=== PATIENT | female | born 1960 | race Two or more races ===

== ENCOUNTER 2016-09-07 10:11 | Inpatient (IN) | payer BC ==
[~2016-09-07] VITALS: Ht 162.6 cm; Wt 65.5 kg
[~2016-09-07 10:11] MED LIST: ALB5IS NEB; LEVO500T3 PO; LISI10TA PO; PRED-188 PO
[2016-09-07] MEDS ORDERED: methylPREDNISolone SOD SUCC 125 MG/2 ML VL IV ONE (10:30)
[2016-09-07] MEDS ORDERED: SODIUM CHLORIDE 0.9% 1,000 ML IV ONE (10:30)
[2016-09-07 11:31] LABS: Basophils # (auto) 0 uL; Basophils % (auto) 0.3 % (0.0-2.0); Eosinophils # (auto) 0 uL; Eosinophils % (auto) 0.4 % (0.0-7.0); Hematocrit 44.4 % (36.0-46.0); Hemoglobin 14.7 g/dL (12.2-16.2); Lymphocytes # (auto) 1.4 uL; Lymphocytes % (auto) 22.5 % (10.0-50.0); Mean Corpuscular Hemoglobin 30.8 pg (28.0-32.0); Mean Corpuscular Hgb Conc. 33.2 g/dL (32.0-36.0); Mean Corpuscular Volume 92.9 fL (80.0-100.0); Mean Platelet Volume 8.5 fL (7.4-10.4); Monocytes # (auto) 0.6 uL; Monocytes % (auto) 9.3 % (0.0-12.0); Neutrophils # (auto) 4.3 uL; Neutrophils % (auto) 67.5 % (37.0-80.0); Platelet Count (auto) 265 10^3/uL (140-450); Red Cell Distribution Width 13.2 % (11.6-16.0); White Blood Cell 6.3 10^3/uL (4.4-10.8)
[2016-09-07 11:51] LABS: Albumin 3.3 g/dL (3.4-5.0); BUN/Creatinine Ratio 42.9; Bilirubin, Total 0.6 mg/dL (0.2-1.0); Calcium 8.9 mg/dL (8.5-10.1); Potassium 3.6 mmol/L (3.5-5.1); Total Protein 6.7 g/dL (6.4-8.2)
[2016-09-07] MEDS ORDERED: cefTRIAXone 1GM/50ML D5W 50 ML IV ONE (16:30)
[2016-09-07] MEDS ORDERED: ONDANSETRON HCL 4 MG/2 ML VIAL IV PRN (16:45)
[2016-09-07] MEDS ORDERED: HYDROcodone-ACET 5/325MG TAB PO PRN (16:45)
[2016-09-07] MEDS ORDERED: DOCUSATE SOD 100 MG CAP PO PRN (16:45)
[2016-09-07] MEDS ORDERED: ACETAMINOPHEN 325 MG TAB PO PRN (16:45)
[2016-09-07] MEDS ORDERED: NITROGLYCERIN 0.4 MG SL TAB SL PRN (16:45)
[2016-09-07] MEDS ORDERED: MORPHINE SULF INJ 2 MG/ML SYRINGE 1ML IV PRN ×2 (16:45)
[2016-09-07] MEDS: HCTZ 25 MG TAB PO SCH (17:55)
[2016-09-07] MEDS: MULTIPLE VITAMIN TAB PO SCH (17:56)
[2016-09-07] MEDS: LISINOPRIL 20 MG TAB PO SCH (17:56)
[2016-09-07] MEDS: BOOST PLUS 8 ounce PO SCH (18:00)
[2016-09-07] MEDS: ALBUTEROL SULF 2.5 MG/0.5ML(0.5%) NEB SOLN NEB SCH ×3 (18:15→23:40)
[2016-09-07] MEDS: IPRATROPIUM BROM 0.5 MG/2.5ML INH SOL NEB SCH ×2 (18:15→23:39)
[2016-09-07] MEDS: BUDESONIDE (INHALATION) 0.5 MG/2 ML NEB NEB SCH (18:15)
[2016-09-07] MEDS: methylPREDNISolone SOD SUCC 125 MG/2 ML VL IV SCH (18:29)
[2016-09-07 18:59] VITALS: BP 153/75
[2016-09-07 19:03] VITALS: BP_SYST 176; BP_SYST 188; BP_DIAS 95; BP_DIAS 98
[2016-09-07] MEDS: TEMAZEPAM 15 MG CAP PO PRN (21:19)
[2016-09-07] MEDS: SODIUM CHLOR 0.9% PF (SALINE LOCK) 10ML VIAL IV SCH (21:20)
[2016-09-07 21:26] VITALS: BP 128/78
[2016-09-07 21:28] VITALS: BP 130/79
[2016-09-08] MEDS: methylPREDNISolone SOD SUCC 125 MG/2 ML VL IV SCH ×4 (01:59→17:50)
[2016-09-08 04:48] VITALS: BP 140/77
[2016-09-08] MEDS: SODIUM CHLOR 0.9% PF (SALINE LOCK) 10ML VIAL IV SCH ×3 (05:45→22:03)
[2016-09-08 06:56] LABS: Basophils # (auto) 0 uL; Basophils % (auto) 0.2 % (0.0-2.0); Eosinophils # (auto) 0 uL; Hematocrit 40.1 % (36.0-46.0); Hemoglobin 13.1 g/dL (12.2-16.2); Lymphocytes # (auto) 0.9 uL; Lymphocytes % (auto) 17.6 % (10.0-50.0); Mean Corpuscular Hemoglobin 30.7 pg (28.0-32.0); Mean Corpuscular Hgb Conc. 32.8 g/dL (32.0-36.0); Mean Corpuscular Volume 93.6 fL (80.0-100.0); Mean Platelet Volume 8.3 fL (7.4-10.4); Monocytes # (auto) 0.4 uL; Monocytes % (auto) 7.9 % (0.0-12.0); Neutrophils # (auto) 3.8 uL; Neutrophils % (auto) 74.3 % (37.0-80.0); Platelet Count (auto) 247 10^3/uL (140-450); Red Cell Distribution Width 13.3 % (11.6-16.0); White Blood Cell 5.1 10^3/uL (4.4-10.8)
[2016-09-08 07:21] LABS: BUN/Creatinine Ratio 50.9; Calcium 8.5 mg/dL (8.5-10.1); Potassium 3.7 mmol/L (3.5-5.1)
[2016-09-08 07:24] LABS: Bilirubin, Total 0.4 mg/dL (0.2-1.0); Total Protein 6.1 g/dL (6.4-8.2)
[2016-09-08] MEDS: BUDESONIDE (INHALATION) 0.5 MG/2 ML NEB NEB SCH ×2 (07:38→22:00)
[2016-09-08] MEDS: IPRATROPIUM BROM 0.5 MG/2.5ML INH SOL NEB SCH ×4 (07:39→22:41)
[2016-09-08] MEDS: ALBUTEROL SULF 2.5 MG/0.5ML(0.5%) NEB SOLN NEB SCH ×4 (07:39→22:41)
[2016-09-08] MEDS: BOOST PLUS 8 ounce PO SCH ×3 (08:30→17:50)
[2016-09-08] MEDS: cefTRIAXone 1GM/50ML D5W 50 ML IV SCH (08:53)
[2016-09-08 09:00] VITALS: BP 139/79
[2016-09-08] MEDS: HCTZ 25 MG TAB PO SCH (10:20)
[2016-09-08] MEDS: LISINOPRIL 20 MG TAB PO SCH (10:21)
[2016-09-08] MEDS: MULTIPLE VITAMIN TAB PO SCH (10:21)
[2016-09-08 17:00] VITALS: BP 132/72
[2016-09-08 22:00] VITALS: BP 135/79
[2016-09-09] MEDS: methylPREDNISolone SOD SUCC 40 MG/ML VL IV SCH ×4 (00:01→17:30)
[2016-09-09 04:44] VITALS: BP 133/80
[2016-09-09] MEDS: SODIUM CHLOR 0.9% PF (SALINE LOCK) 10ML VIAL IV SCH ×3 (05:33→21:01)
[2016-09-09] MEDS: ALBUTEROL SULF 2.5 MG/0.5ML(0.5%) NEB SOLN NEB SCH ×4 (06:05→19:01)
[2016-09-09] MEDS: IPRATROPIUM BROM 0.5 MG/2.5ML INH SOL NEB SCH ×4 (06:05→19:01)
[2016-09-09] MEDS: BOOST PLUS 8 ounce PO SCH ×3 (08:00→19:00)
[2016-09-09 08:13] VITALS: BP 149/95
[2016-09-09] MEDS: cefTRIAXone 1GM/50ML D5W 50 ML IV SCH (08:23)
[2016-09-09] MEDS: MULTIPLE VITAMIN TAB PO SCH (09:53)
[2016-09-09] MEDS: LISINOPRIL 20 MG TAB PO SCH (09:54)
[2016-09-09] MEDS: HCTZ 25 MG TAB PO SCH (09:55)
[2016-09-09] MEDS: BUDESONIDE (INHALATION) 0.5 MG/2 ML NEB NEB SCH ×2 (10:06→19:01)
[2016-09-09 12:43] VITALS: BP 112/70
[2016-09-09 16:49] VITALS: BP 126/74
[2016-09-09] MEDS: TEMAZEPAM 15 MG CAP PO PRN (21:00)
[2016-09-09 21:30] VITALS: BP 122/59
[2016-09-10] MEDS: methylPREDNISolone SOD SUCC 40 MG/ML VL IV SCH ×4 (00:26→17:36)
[2016-09-10 05:00] VITALS: BP 108/58
[2016-09-10] MEDS: SODIUM CHLOR 0.9% PF (SALINE LOCK) 10ML VIAL IV SCH ×3 (05:16→21:16)
[2016-09-10 05:49] LABS: BUN/Creatinine Ratio 46.9; Calcium 9.1 mg/dL (8.5-10.1); Magnesium 2.4 mg/dL (1.6-2.6); Potassium 3.7 mmol/L (3.5-5.1)
[2016-09-10 05:55] LABS: Basophils # (auto) 0 uL; Basophils % (auto) 0.2 % (0.0-2.0); Eosinophils # (auto) 0 uL; Hematocrit 41.6 % (36.0-46.0); Hemoglobin 13.6 g/dL (12.2-16.2); Mean Corpuscular Hemoglobin 30.6 pg (28.0-32.0); Mean Corpuscular Hgb Conc. 32.6 g/dL (32.0-36.0); Mean Corpuscular Volume 93.8 fL (80.0-100.0); Mean Platelet Volume 8.4 fL (7.4-10.4); Monocytes # (auto) 0.6 uL; Monocytes % (auto) 9.8 % (0.0-12.0); Neutrophils # (auto) 4.8 uL; Platelet Count (auto) 243 10^3/uL (140-450); Red Cell Distribution Width 12.4 % (11.6-16.0); White Blood Cell 6.4 10^3/uL (4.4-10.8)
[2016-09-10] MEDS: ALBUTEROL SULF 2.5 MG/0.5ML(0.5%) NEB SOLN NEB SCH ×4 (06:17→18:30)
[2016-09-10] MEDS: IPRATROPIUM BROM 0.5 MG/2.5ML INH SOL NEB SCH ×4 (06:17→18:30)
[2016-09-10] MEDS: BOOST PLUS 8 ounce PO SCH ×3 (08:00→17:29)
[2016-09-10 08:30] VITALS: BP 128/72
[2016-09-10] MEDS ORDERED: ADENOSINE 58 MG in GIVE UN-DILUTED 0 ML IV ONE (08:30)
[2016-09-10] MEDS: cefTRIAXone 1GM/50ML D5W 50 ML IV SCH (09:00)
[2016-09-10] MEDS: BUDESONIDE (INHALATION) 0.5 MG/2 ML NEB NEB SCH ×2 (10:18→18:33)
[2016-09-10] MEDS: MULTIPLE VITAMIN TAB PO SCH (10:29)
[2016-09-10] MEDS: HCTZ 25 MG TAB PO SCH (10:29)
[2016-09-10] MEDS: LISINOPRIL 20 MG TAB PO SCH (10:30)
[2016-09-10 13:00] VITALS: BP 102/57
[2016-09-10] MEDS: LEVOFLOXACIN 500MG 100 ML IV SCH (17:30)
[2016-09-10] MEDS: TEMAZEPAM 15 MG CAP PO PRN (21:23)
[2016-09-10 22:00] VITALS: BP 127/75
[2016-09-11] MEDS: methylPREDNISolone SOD SUCC 40 MG/ML VL IV SCH ×4 (00:52→18:47)
[2016-09-11 05:40] VITALS: BP 114/67
[2016-09-11] MEDS: ALBUTEROL SULF 2.5 MG/0.5ML(0.5%) NEB SOLN NEB SCH ×4 (05:58→22:10)
[2016-09-11] MEDS: IPRATROPIUM BROM 0.5 MG/2.5ML INH SOL NEB SCH ×4 (05:58→22:10)
[2016-09-11] MEDS: SODIUM CHLOR 0.9% PF (SALINE LOCK) 10ML VIAL IV SCH ×3 (06:35→22:13)
[2016-09-11 07:21] LABS: Basophils # (auto) 0 uL; Eosinophils # (auto) 0 uL; Hematocrit 41.3 % (36.0-46.0); Hemoglobin 13.7 g/dL (12.2-16.2); Lymphocytes # (auto) 0.6 uL; Lymphocytes % (auto) 11.8 % (10.0-50.0); Mean Corpuscular Hemoglobin 30.6 pg (28.0-32.0); Mean Corpuscular Hgb Conc. 33.1 g/dL (32.0-36.0); Mean Corpuscular Volume 92.5 fL (80.0-100.0); Mean Platelet Volume 8.5 fL (7.4-10.4); Monocytes # (auto) 0.2 uL; Monocytes % (auto) 4.7 % (0.0-12.0); Neutrophils # (auto) 4.1 uL; Neutrophils % (auto) 83.5 % (37.0-80.0); Platelet Count (auto) 266 10^3/uL (140-450); White Blood Cell 4.9 10^3/uL (4.4-10.8)
[2016-09-11] MEDS: BOOST PLUS 8 ounce PO SCH ×3 (08:00→18:00)
[2016-09-11 08:05] LABS: BUN/Creatinine Ratio 56.9; Calcium 9.2 mg/dL (8.5-10.1); Magnesium 2.4 mg/dL (1.6-2.6); Phosphorus 3.8 mg/dL (2.6-4.90); Potassium 3.8 mmol/L (3.5-5.1)
[2016-09-11 09:00] VITALS: BP 130/82
[2016-09-11] MEDS: BUDESONIDE (INHALATION) 0.5 MG/2 ML NEB NEB SCH ×2 (09:41→22:10)
[2016-09-11] MEDS: LISINOPRIL 20 MG TAB PO SCH (10:07)
[2016-09-11] MEDS: HCTZ 25 MG TAB PO SCH (10:07)
[2016-09-11] MEDS: MULTIPLE VITAMIN TAB PO SCH (10:08)
[2016-09-11] MEDS: LEVOFLOXACIN 500MG 100 ML IV SCH (10:08)
[2016-09-11 13:00] VITALS: BP 135/79
[2016-09-11 17:00] VITALS: BP 138/85
[2016-09-11 22:00] VITALS: BP 154/91
[2016-09-11] MEDS: TEMAZEPAM 15 MG CAP PO PRN (22:10)
[2016-09-12] MEDS: methylPREDNISolone SOD SUCC 40 MG/ML VL IV SCH ×5 (00:03→23:40)
[2016-09-12] MEDS: SODIUM CHLOR 0.9% PF (SALINE LOCK) 10ML VIAL IV SCH ×3 (05:49→22:18)
[2016-09-12 06:00] VITALS: BP 115/72
[2016-09-12 06:48] LABS: Basophils # (auto) 0 uL; Basophils % (auto) 0.1 % (0.0-2.0); Eosinophils # (auto) 0 uL; Hematocrit 42.2 % (36.0-46.0); Hemoglobin 13.8 g/dL (12.2-16.2); Lymphocytes # (auto) 0.7 uL; Lymphocytes % (auto) 11.4 % (10.0-50.0); Mean Corpuscular Hemoglobin 30.5 pg (28.0-32.0); Mean Corpuscular Hgb Conc. 32.8 g/dL (32.0-36.0); Mean Corpuscular Volume 93.2 fL (80.0-100.0); Mean Platelet Volume 8.3 fL (7.4-10.4); Monocytes # (auto) 0.3 uL; Monocytes % (auto) 5.2 % (0.0-12.0); Neutrophils # (auto) 5.3 uL; Neutrophils % (auto) 83.3 % (37.0-80.0); Platelet Count (auto) 291 10^3/uL (140-450); White Blood Cell 6.3 10^3/uL (4.4-10.8)
[2016-09-12 07:11] LABS: Magnesium 2.4 mg/dL (1.6-2.6); Potassium 3.9 mmol/L (3.5-5.1)
[2016-09-12 07:16] LABS: BUN/Creatinine Ratio 45.5
[2016-09-12] MEDS: IPRATROPIUM BROM 0.5 MG/2.5ML INH SOL NEB SCH ×4 (07:41→20:04)
[2016-09-12] MEDS: ALBUTEROL SULF 2.5 MG/0.5ML(0.5%) NEB SOLN NEB SCH ×4 (07:42→20:04)
[2016-09-12] MEDS: BUDESONIDE (INHALATION) 0.5 MG/2 ML NEB NEB SCH ×2 (07:42→20:04)
[2016-09-12] MEDS: BOOST PLUS 8 ounce PO SCH ×3 (08:00→18:27)
[2016-09-12 09:00] VITALS: BP 127/81
[2016-09-12] MEDS: LEVOFLOXACIN 500MG 100 ML IV SCH (10:57)
[2016-09-12] MEDS: MULTIPLE VITAMIN TAB PO SCH (10:57)
[2016-09-12] MEDS: HCTZ 25 MG TAB PO SCH (10:58)
[2016-09-12] MEDS: LISINOPRIL 20 MG TAB PO SCH (10:59)
[2016-09-12 13:00] VITALS: BP 127/79
[2016-09-12 17:00] VITALS: BP 92/72
[2016-09-12] MEDS: ALPRAZolam 0.25 MG TAB PO PRN (18:40)
[2016-09-12 22:25] VITALS: BP 115/76
[2016-09-13 05:19] VITALS: BP 125/80
[2016-09-13] MEDS: SODIUM CHLOR 0.9% PF (SALINE LOCK) 10ML VIAL IV SCH ×3 (05:29→22:38)
[2016-09-13] MEDS: methylPREDNISolone SOD SUCC 40 MG/ML VL IV SCH ×3 (05:29→17:27)
[2016-09-13 07:05] LABS: Basophils # (auto) 0 uL; Eosinophils # (auto) 0 uL; Hemoglobin 14.4 g/dL (12.2-16.2); Lymphocytes # (auto) 0.6 uL; Lymphocytes % (auto) 7.2 % (10.0-50.0); Mean Corpuscular Hemoglobin 30.4 pg (28.0-32.0); Mean Corpuscular Hgb Conc. 32.7 g/dL (32.0-36.0); Mean Platelet Volume 8.6 fL (7.4-10.4); Monocytes # (auto) 0.3 uL; Monocytes % (auto) 4.1 % (0.0-12.0); Neutrophils # (auto) 7.3 uL; Neutrophils % (auto) 88.7 % (37.0-80.0); Platelet Count (auto) 294 10^3/uL (140-450); Red Cell Distribution Width 13.3 % (11.6-16.0); White Blood Cell 8.3 10^3/uL (4.4-10.8)
[2016-09-13 07:23] LABS: BUN/Creatinine Ratio 48.4; Calcium 9.4 mg/dL (8.5-10.1); Magnesium 2.3 mg/dL (1.6-2.6); Phosphorus 3.5 mg/dL (2.6-4.90); Potassium 3.8 mmol/L (3.5-5.1)
[2016-09-13] MEDS: IPRATROPIUM BROM 0.5 MG/2.5ML INH SOL NEB SCH ×5 (08:00→22:06)
[2016-09-13] MEDS: BOOST PLUS 8 ounce PO SCH ×3 (08:00→18:23)
[2016-09-13] MEDS: ALBUTEROL SULF 2.5 MG/0.5ML(0.5%) NEB SOLN NEB SCH ×5 (08:00→22:06)
[2016-09-13 09:00] VITALS: BP 116/74
[2016-09-13] MEDS: LEVOFLOXACIN 500MG 100 ML IV SCH (09:13)
[2016-09-13] MEDS: LISINOPRIL 20 MG TAB PO SCH (09:14)
[2016-09-13] MEDS: MULTIPLE VITAMIN TAB PO SCH (09:14)
[2016-09-13] MEDS: ALPRAZolam 0.25 MG TAB PO PRN ×2 (09:14→17:31)
[2016-09-13] MEDS: HCTZ 25 MG TAB PO SCH (09:15)
[2016-09-13 13:00] VITALS: BP 109/56
[2016-09-13 17:00] VITALS: BP 108/64
[2016-09-13 22:00] VITALS: BP 113/68
[2016-09-13] MEDS: BUDESONIDE (INHALATION) 0.5 MG/2 ML NEB NEB SCH (22:07)
[2016-09-14] MEDS: methylPREDNISolone SOD SUCC 40 MG/ML VL IV SCH ×3 (00:22→12:32)
[2016-09-14 05:00] VITALS: BP 119/73
[2016-09-14] MEDS: SODIUM CHLOR 0.9% PF (SALINE LOCK) 10ML VIAL IV SCH ×2 (05:54→14:04)
[2016-09-14] MEDS: IPRATROPIUM BROM 0.5 MG/2.5ML INH SOL NEB SCH ×3 (06:29→13:31)
[2016-09-14] MEDS: ALBUTEROL SULF 2.5 MG/0.5ML(0.5%) NEB SOLN NEB SCH ×3 (06:29→13:31)
[2016-09-14] MEDS: BOOST PLUS 8 ounce PO SCH ×2 (08:00→12:00)
[2016-09-14 09:00] VITALS: BP 113/53
[2016-09-14] MEDS: BUDESONIDE (INHALATION) 0.5 MG/2 ML NEB NEB SCH (09:46)
[2016-09-14] MEDS: LEVOFLOXACIN 500MG 100 ML IV SCH (10:19)
[2016-09-14] MEDS: MULTIPLE VITAMIN TAB PO SCH (10:19)
[2016-09-14] MEDS: HCTZ 25 MG TAB PO SCH (10:19)
[2016-09-14] MEDS: ALPRAZolam 0.25 MG TAB PO PRN (10:19)
[2016-09-14] MEDS: LISINOPRIL 20 MG TAB PO SCH (10:19)
[2016-09-14 13:00] VITALS: BP 108/69
[2016-09-14 14:11] VITALS: BP 108/69
== END 2016-09-14 15:34 | disposition home or self-care (01) | DRG 190 ==
LOC: EDBD 10:11 → ER 10:15 → TELE 10:16 → TELE-EAST 18:40
PROVIDERS: ADMIT Internal Medicine; ATTEND Internal Medicine
PROC: 5A09357 Assistance with Respiratory Ventilation, Less than 24 Consecutive Hours, Continuous Positive Airway Pressure (ICD-10-PCS; principal; 2016-09-07)
DX: J44.0 Chronic obstructive pulmonary disease with (acute) lower respiratory infection (principal); J96.21 Acute and chronic respiratory failure with hypoxia; J96.22 Acute and chronic respiratory failure with hypercapnia; J45.901 Unspecified asthma with (acute) exacerbation; E44.0 Moderate protein-calorie malnutrition; J44.1 Chronic obstructive pulmonary disease with (acute) exacerbation; F17.210 Nicotine dependence, cigarettes, uncomplicated; R73.9 Hyperglycemia, unspecified; F41.9 Anxiety disorder, unspecified; I12.9 Hypertensive chronic kidney disease with stage 1 through stage 4 chronic kidney disease, or unspecified chronic kidney disease; J20.9 Acute bronchitis, unspecified; J84.10 Pulmonary fibrosis, unspecified; N18.9 Chronic kidney disease, unspecified; Z99.81 Dependence on supplemental oxygen; Z90.49 Acquired absence of other specified parts of digestive tract; Z98.890 Other specified postprocedural states; Z98.51 Tubal ligation status; Z82.49 Family history of ischemic heart disease and other diseases of the circulatory system; Z68.24 Body mass index [BMI] 24.0-24.9, adult
CPT/HCPCS: 36415; 36600; 71010; 80048; 80053; 82805; 83735; 84100; 84484; 85025; 93005; 93306; 94640; 94660; 96374; 96375; 97001; 97116; 97530; J0153; J0696; J1956

== ENCOUNTER 2017-09-29 01:47 | Inpatient (IN) | payer BC ==
[~2017-09-29] VITALS: Ht 160 cm; Wt 70.7 kg
[~2017-09-29 01:47] MED LIST changes: +LEVO500T21 PO; -LEVO500T3 PO
[2017-09-29 02:07] LABS: Basophils # (auto) 0.1 uL; Basophils % (auto) 0.6 % (0.0-2.0); Eosinophils # (auto) 0 uL; Hematocrit 44.2 % (36.0-46.0); Hemoglobin 14.7 g/dL (12.2-16.2); Lymphocytes # (auto) 2.8 uL; Mean Corpuscular Hemoglobin 31.9 pg (28.0-32.0); Mean Corpuscular Hgb Conc. 33.3 g/dL (32.0-36.0); Mean Corpuscular Volume 95.8 fL (80.0-100.0); Monocytes % (auto) 9.9 % (0.0-12.0); Neutrophils # (auto) 6.3 uL; Neutrophils % (auto) 62.5 % (37.0-80.0); Nucleated Red Blood Cells % 0.1 %; Platelet Count (auto) 316 10^3/uL (140-450); Red Blood Cells 4.62 10^6/uL (4.0-5.20); White Blood Cell 10.2 10^3/uL (4.4-10.8)
[2017-09-29] MEDS ORDERED: FUROSEMIDE 20 MG/2 ML VIAL ONE (02:14)
[2017-09-29] MEDS ORDERED: methylPREDNISolone SOD SUCC 125 MG/2 ML VL ONE (02:14)
[2017-09-29] MEDS ORDERED: MORPHINE SULFATE 10 MG/ML INJ 1ML SDV IV ONE (02:15)
[2017-09-29] MEDS ORDERED: IPRATROPIUM BROM 0.5 MG/2.5ML INH SOL NEB ONE (02:15)
[2017-09-29] MEDS ORDERED: IPRATROPIUM BROM 0.5 MG/2.5ML INH SOL ONE (02:15)
[2017-09-29] MEDS ORDERED: ONDANSETRON HCL 4 MG/2 ML VIAL IV ONE (02:15)
[2017-09-29] MEDS ORDERED: FUROSEMIDE 20 MG/2 ML VIAL IV ONE (02:15)
[2017-09-29] MEDS ORDERED: methylPREDNISolone SOD SUCC 125 MG/2 ML VL IV ONE (02:15)
[2017-09-29] MEDS ORDERED: ALBUTEROL SULF 2.5 MG/0.5ML(0.5%) NEB SOLN NEB ONE (02:15)
[2017-09-29 02:24] LABS: Albumin 3.4 g/dL (3.4-5.0); BUN/Creatinine Ratio 22.2; Magnesium 2.3 mg/dL (1.6-2.6); Potassium 4.4 mmol/L (3.5-5.1)
[2017-09-29 02:44] LABS: Bilirubin, Total 0.5 mg/dL (0.2-1.0)
[2017-09-29] MEDS ORDERED: UMEC1AER IN (03:10)
[2017-09-29] MEDS ORDERED: ALPR0.254 PO (03:10)
[2017-09-29 04:41] LABS: Urine Bacteria NONE SEEN /hpf (None Seen); Urine Blood Negative /uL (Negative); Urine Hyaline Cast MOD /lpf (0 - 2); Urine Mucus FEW (None Seen); Urine WBC 2 /hpf (0 - 5)
[2017-09-29] MEDS ORDERED: NITROGLYCERIN 0.4 MG SL TAB SL PRN (05:30)
[2017-09-29] MEDS ORDERED: ONDANSETRON HCL 4 MG/2 ML VIAL IV PRN (05:30)
[2017-09-29] MEDS ORDERED: MORPHINE SULFATE 10 MG/ML INJ 1ML SDV IV PRN (05:30)
[2017-09-29] MEDS ORDERED: ALPRAZolam 0.25 MG TAB PO PRN (05:30)
[2017-09-29 05:54] LABS: Cholesterol 225 mg/dL (< 200); Creatine Kinase IFCC 107 U/L (26-192); HDL Cholesterol 78 mg/dL (40-59); LDL Cholesterol 129 mg/dL (< 100); Triglycerides 156 mg/dL (< 150)
[2017-09-29] MEDS: IPRATROPIUM BROM 0.5 MG/2.5ML INH SOL NEB SCH ×4 (06:16→22:13)
[2017-09-29] MEDS: ALBUTEROL SULF 2.5 MG/0.5ML(0.5%) NEB SOLN NEB SCH ×4 (06:16→22:13)
[2017-09-29 08:56] VITALS: BP 102/77
[2017-09-29 09:12] VITALS: BP 120/88
[2017-09-29] MEDS ORDERED: methylPREDNISolone SOD SUCC 40 MG/ML VL IV SCH (10:00)
[2017-09-29] MEDS: FUROSEMIDE 40 MG/4 ML VIAL IV SCH (10:18)
[2017-09-29] MEDS: ASPirin-EC 81 mg tab PO SCH (10:18)
[2017-09-29] MEDS ORDERED: IPRATROPIUM BROM 0.5 MG/2.5ML INH SOL NEB PRN (16:00)
[2017-09-29] MEDS ORDERED: ALBUTEROL SULF 2.5 MG/0.5ML(0.5%) NEB SOLN NEB PRN (16:00)
[2017-09-29] MEDS: methylPREDNISolone SOD SUCC 40 MG/ML VL IV SCH ×2 (16:34→22:41)
[2017-09-29] MEDS: ACETAMINOPHEN 500 MG TAB PO PRN (16:35)
[2017-09-29 17:16] VITALS: BP 133/74
[2017-09-29] MEDS: BUDESONIDE (INHALATION) 0.5 MG/2 ML NEB NEB SCH (18:30)
[2017-09-29] MEDS: LORazepam 0.5 MG TAB PO PRN (21:32)
[2017-09-29] MEDS: ATORVASTATIN 20 MG TAB PO SCH (21:38)
[2017-09-29 21:47] VITALS: BP 122/70
[2017-09-30] VITALS (7 sets, daily range): BP systolic 129–151; BP diastolic 83–113
[2017-09-30] MEDS: TEMAZEPAM 15 MG CAP PO PRN ×2 (01:10→22:39)
[2017-09-30] MEDS: methylPREDNISolone SOD SUCC 40 MG/ML VL IV SCH ×4 (04:32→22:34)
[2017-09-30] MEDS: LORazepam 0.5 MG TAB PO PRN ×2 (05:30→21:17)
[2017-09-30] MEDS: IPRATROPIUM BROM 0.5 MG/2.5ML INH SOL NEB SCH ×5 (05:32→21:51)
[2017-09-30] MEDS: ALBUTEROL SULF 2.5 MG/0.5ML(0.5%) NEB SOLN NEB SCH ×5 (05:32→21:52)
[2017-09-30] MEDS ORDERED: ADENOSINE 65 MG in GIVE UN-DILUTED 0 ML IV ONE (08:30)
[2017-09-30] MEDS: BUDESONIDE (INHALATION) 0.5 MG/2 ML NEB NEB SCH ×2 (09:38→21:30)
[2017-09-30] MEDS: ASPirin-EC 81 mg tab PO SCH (10:48)
[2017-09-30] MEDS: FUROSEMIDE 40 MG/4 ML VIAL IV SCH (11:21)
[2017-09-30] MEDS: ATORVASTATIN 20 MG TAB PO SCH (22:34)
[2017-10-01 05:00] VITALS: BP 152/97
[2017-10-01] MEDS: methylPREDNISolone SOD SUCC 40 MG/ML VL IV SCH ×4 (05:30→23:09)
[2017-10-01] MEDS: LORazepam 0.5 MG TAB PO PRN ×3 (06:39→23:26)
[2017-10-01] MEDS: IPRATROPIUM BROM 0.5 MG/2.5ML INH SOL NEB SCH ×5 (06:48→22:57)
[2017-10-01] MEDS: BUDESONIDE (INHALATION) 0.5 MG/2 ML NEB NEB SCH ×2 (06:48→19:47)
[2017-10-01] MEDS: ALBUTEROL SULF 2.5 MG/0.5ML(0.5%) NEB SOLN NEB SCH ×5 (06:48→22:57)
[2017-10-01 09:00] VITALS: BP 146/99
[2017-10-01] MEDS: FUROSEMIDE 40 MG/4 ML VIAL IV SCH (11:03)
[2017-10-01] MEDS: ASPirin-EC 81 mg tab PO SCH (11:04)
[2017-10-01 13:14] VITALS: BP 153/97
[2017-10-01 17:00] VITALS: BP 154/94
[2017-10-01 20:00] VITALS: BP 110/62
[2017-10-01 22:00] VITALS: BP 140/97
[2017-10-01] MEDS: ATORVASTATIN 20 MG TAB PO SCH (23:08)
[2017-10-02] MEDS: ALBUTEROL SULF 2.5 MG/0.5ML(0.5%) NEB SOLN NEB SCH ×5 (01:30→19:16)
[2017-10-02] MEDS: IPRATROPIUM BROM 0.5 MG/2.5ML INH SOL NEB SCH ×6 (01:30→22:14)
[2017-10-02 05:00] VITALS: BP 137/85
[2017-10-02] MEDS: methylPREDNISolone SOD SUCC 40 MG/ML VL IV SCH ×4 (05:24→23:25)
[2017-10-02] MEDS: BUDESONIDE (INHALATION) 0.5 MG/2 ML NEB NEB SCH ×3 (07:18→22:14)
[2017-10-02 09:00] VITALS: BP 147/102
[2017-10-02] MEDS: ASPirin-EC 81 mg tab PO SCH (11:08)
[2017-10-02] MEDS: FUROSEMIDE 40 MG/4 ML VIAL IV SCH (11:08)
[2017-10-02 13:00] VITALS: BP 133/83
[2017-10-02] MEDS: LORazepam 0.5 MG TAB PO PRN (14:13)
[2017-10-02 15:08] VITALS: BP 133/83
[2017-10-02 17:00] VITALS: BP 118/70
[2017-10-02] MEDS: ATORVASTATIN 20 MG TAB PO SCH (21:39)
[2017-10-02 22:00] VITALS: BP 127/78
[2017-10-03] MEDS: IPRATROPIUM BROM 0.5 MG/2.5ML INH SOL NEB SCH ×4 (02:09→18:15)
[2017-10-03] MEDS: LORazepam 0.5 MG TAB PO PRN ×2 (02:31→10:39)
[2017-10-03 04:51] VITALS: BP 133/70
[2017-10-03] MEDS: methylPREDNISolone SOD SUCC 40 MG/ML VL IV SCH ×4 (05:23→23:08)
[2017-10-03] MEDS: ALBUTEROL SULF 2.5 MG/0.5ML(0.5%) NEB SOLN NEB SCH ×4 (06:07→18:15)
[2017-10-03 09:00] VITALS: BP 140/83
[2017-10-03] MEDS: FUROSEMIDE 40 MG/4 ML VIAL IV SCH (09:19)
[2017-10-03] MEDS: ASPirin-EC 81 mg tab PO SCH (09:20)
[2017-10-03] MEDS: BUDESONIDE (INHALATION) 0.5 MG/2 ML NEB NEB SCH ×3 (10:22→22:00)
[2017-10-03] MEDS ORDERED: DOXYCYCLINE 100 MG TAB/CAP PO ONE (10:30)
[2017-10-03 11:21] LABS: BUN/Creatinine Ratio 61.7; Calcium 9.4 mg/dL (8.5-10.1); Potassium 4.3 mmol/L (3.5-5.1)
[2017-10-03 13:00] VITALS: BP 130/78
[2017-10-03 16:52] VITALS: BP 121/83
[2017-10-03] MEDS: ATORVASTATIN 20 MG TAB PO SCH ×2 (21:17→22:33)
[2017-10-03] MEDS: DOXYCYCLINE 100 MG TAB/CAP PO SCH (21:17)
[2017-10-03 22:20] VITALS: BP 128/84
[2017-10-04] MEDS: LORazepam 0.5 MG TAB PO PRN (02:31)
[2017-10-04] MEDS: IPRATROPIUM BROM 0.5 MG/2.5ML INH SOL NEB SCH ×6 (02:42→21:53)
[2017-10-04] MEDS: ALBUTEROL SULF 2.5 MG/0.5ML(0.5%) NEB SOLN NEB SCH ×6 (02:42→21:53)
[2017-10-04 05:00] VITALS: BP 157/77
[2017-10-04] MEDS: methylPREDNISolone SOD SUCC 40 MG/ML VL IV SCH ×4 (05:29→23:25)
[2017-10-04] MEDS: BUDESONIDE (INHALATION) 0.5 MG/2 ML NEB NEB SCH ×3 (06:30→18:19)
[2017-10-04 08:00] VITALS: BP 140/116
[2017-10-04 09:00] VITALS: BP 140/116
[2017-10-04] MEDS: FUROSEMIDE 40 MG/4 ML VIAL IV SCH (09:49)
[2017-10-04] MEDS: DOXYCYCLINE 100 MG TAB/CAP PO SCH ×2 (09:49→22:33)
[2017-10-04] MEDS: ASPirin-EC 81 mg tab PO SCH (09:49)
[2017-10-04] MEDS ORDERED: LORazepam 2MG/ML-1ML VIAL ONE (10:44)
[2017-10-04] MEDS ORDERED: LORazepam 2MG/ML-1ML VIAL IV PRN (10:45)
[2017-10-04 13:00] VITALS: BP 137/92
[2017-10-04] MEDS: LORazepam 2MG/ML-1ML VIAL IV PRN ×2 (16:04→22:25)
[2017-10-04 17:39] VITALS: BP 126/95
[2017-10-04 22:00] VITALS: BP 151/88
[2017-10-04] MEDS: TEMAZEPAM 15 MG CAP PO PRN (22:33)
[2017-10-05] MEDS: ALBUTEROL SULF 2.5 MG/0.5ML(0.5%) NEB SOLN NEB SCH ×5 (01:55→18:20)
[2017-10-05] MEDS: IPRATROPIUM BROM 0.5 MG/2.5ML INH SOL NEB SCH ×5 (01:55→18:20)
[2017-10-05 04:45] VITALS: BP 125/82
[2017-10-05] MEDS: methylPREDNISolone SOD SUCC 40 MG/ML VL IV SCH ×4 (05:20→23:10)
[2017-10-05] MEDS: BUDESONIDE (INHALATION) 0.5 MG/2 ML NEB NEB SCH ×2 (06:29→22:00)
[2017-10-05] MEDS: LORazepam 2MG/ML-1ML VIAL IV PRN ×4 (07:20→21:42)
[2017-10-05 09:10] VITALS: BP 138/91
[2017-10-05] MEDS: ASPirin-EC 81 mg tab PO SCH (10:44)
[2017-10-05] MEDS: FUROSEMIDE 40 MG/4 ML VIAL IV SCH (10:44)
[2017-10-05] MEDS: DOXYCYCLINE 100 MG TAB/CAP PO SCH ×2 (10:44→21:27)
[2017-10-05 13:00] VITALS: BP 152/84
[2017-10-05 16:31] VITALS: BP 152/84
[2017-10-05 17:49] VITALS: BP 131/78
[2017-10-05] MEDS: ATORVASTATIN 20 MG TAB PO SCH (21:27)
[2017-10-05 22:00] VITALS: BP 113/88
[2017-10-06] MEDS: LORazepam 2MG/ML-1ML VIAL IV PRN ×5 (03:20→22:12)
[2017-10-06 05:00] VITALS: BP 118/73
[2017-10-06] MEDS: methylPREDNISolone SOD SUCC 40 MG/ML VL IV SCH (05:30)
[2017-10-06] MEDS: BUDESONIDE (INHALATION) 0.5 MG/2 ML NEB NEB SCH ×2 (06:34→19:06)
[2017-10-06] MEDS: IPRATROPIUM BROM 0.5 MG/2.5ML INH SOL NEB SCH ×5 (06:34→22:24)
[2017-10-06] MEDS: ALBUTEROL SULF 2.5 MG/0.5ML(0.5%) NEB SOLN NEB SCH ×5 (06:34→22:23)
[2017-10-06 06:35] LABS: Basophils # (auto) 0 uL; Basophils % (auto) 0.1 % (0.0-2.0); Eosinophils # (auto) 0 uL; Hematocrit 49.2 % (36.0-46.0); Hemoglobin 17.1 g/dL (12.2-16.2); Lymphocytes # (auto) 1.1 uL; Lymphocytes % (auto) 8.5 % (10.0-50.0); Mean Corpuscular Hemoglobin 32.4 pg (28.0-32.0); Mean Corpuscular Hgb Conc. 34.7 g/dL (32.0-36.0); Mean Corpuscular Volume 93.3 fL (80.0-100.0); Monocytes # (auto) 0.7 uL; Monocytes % (auto) 5.6 % (0.0-12.0); Neutrophils % (auto) 85.8 % (37.0-80.0); Nucleated Red Blood Cells % 0.1 %; Platelet Count (auto) 282 10^3/uL (140-450); Red Blood Cells 5.27 10^6/uL (4.0-5.20); Red Cell Distribution Width 13.5 % (11.8-14.3); White Blood Cell 12.9 10^3/uL (4.4-10.8)
[2017-10-06 07:03] LABS: Albumin 3.5 g/dL (3.4-5.0); BUN/Creatinine Ratio 89.4; Calcium 9.5 mg/dL (8.5-10.1); Potassium 3.9 mmol/L (3.5-5.1); Total Protein 7.3 g/dL (6.4-8.2)
[2017-10-06] MEDS: ASPirin-EC 81 mg tab PO SCH (08:56)
[2017-10-06] MEDS: FUROSEMIDE 40 MG/4 ML VIAL IV SCH (08:56)
[2017-10-06] MEDS: DOXYCYCLINE 100 MG TAB/CAP PO SCH ×2 (08:57→22:12)
[2017-10-06 09:00] VITALS: BP_SYST 119; BP_SYST 138; BP_DIAS 77; BP_DIAS 83
[2017-10-06] MEDS: predniSONE 20 MG TAB PO SCH (11:11)
[2017-10-06 13:00] VITALS: BP 152/87
[2017-10-06 17:00] VITALS: BP 118/95
[2017-10-06] MEDS: ACETAMINOPHEN 500 MG TAB PO PRN (20:22)
[2017-10-06 22:00] VITALS: BP 121/85
[2017-10-06] MEDS: ATORVASTATIN 20 MG TAB PO SCH (22:12)
[2017-10-07] MEDS: LORazepam 2MG/ML-1ML VIAL IV PRN (03:35)
[2017-10-07 05:35] VITALS: BP 120/84
[2017-10-07] MEDS: ALBUTEROL SULF 2.5 MG/0.5ML(0.5%) NEB SOLN NEB SCH ×4 (06:09→18:44)
[2017-10-07] MEDS: IPRATROPIUM BROM 0.5 MG/2.5ML INH SOL NEB SCH ×4 (06:09→18:44)
[2017-10-07] MEDS: BUDESONIDE (INHALATION) 0.5 MG/2 ML NEB NEB SCH ×2 (06:09→18:44)
[2017-10-07 09:13] VITALS: BP 126/87
[2017-10-07] MEDS: DOXYCYCLINE 100 MG TAB/CAP PO SCH ×2 (10:53→22:08)
[2017-10-07] MEDS: HYDROcodone-ACET 5/325MG TAB PO PRN ×2 (10:53→20:09)
[2017-10-07] MEDS: predniSONE 20 MG TAB PO SCH (10:53)
[2017-10-07] MEDS: ASPirin-EC 81 mg tab PO SCH (10:53)
[2017-10-07 17:57] VITALS: BP 127/66
[2017-10-07] MEDS: BOOST 8 ounces PO SCH (18:00)
[2017-10-07 22:00] VITALS: BP 106/59
[2017-10-07] MEDS: ATORVASTATIN 20 MG TAB PO SCH (22:08)
[2017-10-07] MEDS: TEMAZEPAM 15 MG CAP PO PRN (22:08)
[2017-10-08 06:10] VITALS: BP 120/77
[2017-10-08] MEDS: ALBUTEROL SULF 2.5 MG/0.5ML(0.5%) NEB SOLN NEB SCH ×4 (06:38→18:47)
[2017-10-08] MEDS: IPRATROPIUM BROM 0.5 MG/2.5ML INH SOL NEB SCH ×4 (06:38→18:47)
[2017-10-08] MEDS: BOOST 8 ounces PO SCH ×3 (08:00→18:27)
[2017-10-08 09:00] VITALS: BP 113/73
[2017-10-08 09:44] VITALS: BP 120/77
[2017-10-08] MEDS: BUDESONIDE (INHALATION) 0.5 MG/2 ML NEB NEB SCH ×2 (10:05→18:47)
[2017-10-08] MEDS: predniSONE 20 MG TAB PO SCH (10:25)
[2017-10-08] MEDS: LORazepam 2MG/ML-1ML VIAL IV PRN ×2 (10:25→18:26)
[2017-10-08] MEDS: DOXYCYCLINE 100 MG TAB/CAP PO SCH ×2 (10:25→22:30)
[2017-10-08] MEDS: ASPirin-EC 81 mg tab PO SCH (10:25)
[2017-10-08 13:00] VITALS: BP 128/80
[2017-10-08 17:34] VITALS: BP 106/70
[2017-10-08 22:00] VITALS: BP 102/71
[2017-10-08] MEDS: TEMAZEPAM 15 MG CAP PO PRN (22:30)
[2017-10-08] MEDS: ATORVASTATIN 20 MG TAB PO SCH (22:30)
[2017-10-09 05:26] VITALS: BP 117/76
[2017-10-09] MEDS: BUDESONIDE (INHALATION) 0.5 MG/2 ML NEB NEB SCH ×2 (07:18→18:13)
[2017-10-09] MEDS: IPRATROPIUM BROM 0.5 MG/2.5ML INH SOL NEB SCH ×5 (07:18→18:18)
[2017-10-09] MEDS: ALBUTEROL SULF 2.5 MG/0.5ML(0.5%) NEB SOLN NEB SCH ×5 (07:18→18:18)
[2017-10-09 09:00] VITALS: BP 92/73
[2017-10-09] MEDS: predniSONE 20 MG TAB PO SCH (10:34)
[2017-10-09] MEDS: BOOST 8 ounces PO SCH ×3 (10:34→17:53)
[2017-10-09] MEDS: DOXYCYCLINE 100 MG TAB/CAP PO SCH ×2 (10:35→21:40)
[2017-10-09] MEDS: ASPirin-EC 81 mg tab PO SCH (10:35)
[2017-10-09] MEDS ORDERED: acetaZOLAMIDE 250 MG TAB PO SCH (11:15)
[2017-10-09 12:28] LABS: BUN/Creatinine Ratio 72.2; Calcium 9.3 mg/dL (8.5-10.1); Potassium 3.4 mmol/L (3.5-5.1)
[2017-10-09 13:00] VITALS: BP 102/62
[2017-10-09] MEDS: LORazepam 2MG/ML-1ML VIAL IV PRN (13:43)
[2017-10-09 17:00] VITALS: BP 95/62
[2017-10-09] MEDS ORDERED: MORPHINE SULFATE 4 MG/ML SYR/VIAL IV PRN (19:45)
[2017-10-09] MEDS: ATORVASTATIN 20 MG TAB PO SCH (21:40)
[2017-10-09] MEDS: POTASSIUM CHL 20 Meq TABLET PO SCH (21:40)
[2017-10-09 22:00] VITALS: BP 99/66
[2017-10-09] MEDS: acetaZOLAMIDE 250 MG TAB PO SCH (23:54)
[2017-10-10 05:00] VITALS: BP 120/75
[2017-10-10] MEDS: acetaZOLAMIDE 250 MG TAB PO SCH ×3 (06:00→18:00)
[2017-10-10] MEDS: IPRATROPIUM BROM 0.5 MG/2.5ML INH SOL NEB SCH ×4 (07:41→19:36)
[2017-10-10] MEDS: ALBUTEROL SULF 2.5 MG/0.5ML(0.5%) NEB SOLN NEB SCH ×4 (07:41→19:36)
[2017-10-10] MEDS: BOOST 8 ounces PO SCH ×3 (08:00→18:31)
[2017-10-10 09:00] VITALS: BP 96/64
[2017-10-10] MEDS: DOXYCYCLINE 100 MG TAB/CAP PO SCH ×2 (10:10→22:14)
[2017-10-10] MEDS: POTASSIUM CHL 20 Meq TABLET PO SCH ×2 (10:10→22:14)
[2017-10-10] MEDS: predniSONE 20 MG TAB PO SCH (10:11)
[2017-10-10] MEDS: ASPirin-EC 81 mg tab PO SCH (10:12)
[2017-10-10] MEDS: BUDESONIDE (INHALATION) 0.5 MG/2 ML NEB NEB SCH ×2 (10:31→19:36)
[2017-10-10 13:00] VITALS: BP 111/68
[2017-10-10 16:50] LABS: BUN/Creatinine Ratio 65.2; Calcium 8.9 mg/dL (8.5-10.1)
[2017-10-10 16:56] LABS: Potassium 2.9 mmol/L (3.5-5.1)
[2017-10-10 17:00] VITALS: BP 111/64
[2017-10-10 22:00] VITALS: BP 108/68
[2017-10-10] MEDS: TEMAZEPAM 15 MG CAP PO PRN (22:14)
[2017-10-10] MEDS: ATORVASTATIN 20 MG TAB PO SCH (22:14)
[2017-10-10 23:39] LABS: Calcium 8.9 mg/dL (8.5-10.1)
[2017-10-10 23:41] LABS: BUN/Creatinine Ratio 51.7
[2017-10-10 23:47] LABS: Potassium 2.7 mmol/L (3.5-5.1)
[2017-10-11] MEDS: POTASSIUM CHL 20MEQ/100ML 100 ML IV SCH ×2 (01:41→03:29)
[2017-10-11 05:00] VITALS: BP 105/56
[2017-10-11] MEDS: acetaZOLAMIDE 250 MG TAB PO SCH ×2 (05:49)
[2017-10-11] MEDS: ALBUTEROL SULF 2.5 MG/0.5ML(0.5%) NEB SOLN NEB SCH ×5 (06:16→23:01)
[2017-10-11] MEDS: IPRATROPIUM BROM 0.5 MG/2.5ML INH SOL NEB SCH ×5 (06:16→23:02)
[2017-10-11 08:46] VITALS: BP 105/56
[2017-10-11 09:00] VITALS: BP 117/67
[2017-10-11] MEDS: BOOST 8 ounces PO SCH ×3 (09:54→18:03)
[2017-10-11] MEDS: BUDESONIDE (INHALATION) 0.5 MG/2 ML NEB NEB SCH ×3 (09:58→23:01)
[2017-10-11] MEDS: DOXYCYCLINE 100 MG TAB/CAP PO SCH ×2 (10:22→21:46)
[2017-10-11] MEDS: POTASSIUM CHL 20 Meq TABLET PO SCH ×2 (10:22→21:45)
[2017-10-11] MEDS: predniSONE 20 MG TAB PO SCH (10:22)
[2017-10-11] MEDS: ASPirin-EC 81 mg tab PO SCH (10:22)
[2017-10-11 13:00] VITALS: BP 117/76
[2017-10-11] MEDS ORDERED: POTASSIUM CHL 20 Meq TABLET PO ONE ×2 (13:00→15:15)
[2017-10-11] MEDS ORDERED: SODIUM CHL 3% 500 ML IV ONE (13:30)
[2017-10-11 17:00] VITALS: BP 104/59
[2017-10-11 17:31] LABS: Calcium 8.9 mg/dL (8.5-10.1); Potassium 3.6 mmol/L (3.5-5.1)
[2017-10-11] MEDS: ATORVASTATIN 20 MG TAB PO SCH (21:46)
[2017-10-11 22:02] VITALS: BP 98/54
[2017-10-12] MEDS: ALBUTEROL SULF 2.5 MG/0.5ML(0.5%) NEB SOLN NEB SCH ×4 (05:26→19:31)
[2017-10-12] MEDS: IPRATROPIUM BROM 0.5 MG/2.5ML INH SOL NEB SCH ×4 (05:26→19:31)
[2017-10-12] MEDS: BUDESONIDE (INHALATION) 0.5 MG/2 ML NEB NEB SCH ×2 (05:27→19:31)
[2017-10-12 05:39] VITALS: BP 97/63
[2017-10-12 07:07] LABS: BUN/Creatinine Ratio 44.9; Calcium 8.6 mg/dL (8.5-10.1); Potassium 3.6 mmol/L (3.5-5.1)
[2017-10-12 08:01] VITALS: BP 102/58
[2017-10-12] MEDS: BOOST 8 ounces PO SCH ×3 (09:19→18:43)
[2017-10-12] MEDS: SODIUM CHLORIDE 0.9% 1,000 ML IV SCH ×3 (09:45→19:45)
[2017-10-12] MEDS: POTASSIUM CHL 20 Meq TABLET PO SCH ×2 (10:52→22:15)
[2017-10-12] MEDS: DOXYCYCLINE 100 MG TAB/CAP PO SCH ×2 (10:52→22:15)
[2017-10-12] MEDS: ASPirin-EC 81 mg tab PO SCH (10:52)
[2017-10-12] MEDS: predniSONE 20 MG TAB PO SCH (10:53)
[2017-10-12 12:05] VITALS: BP 109/61
[2017-10-12 16:59] VITALS: BP 109/57
[2017-10-12] MEDS: HYDROcodone-ACET 5/325MG TAB PO PRN (18:42)
[2017-10-12 22:00] VITALS: BP 122/74
[2017-10-12] MEDS: ATORVASTATIN 20 MG TAB PO SCH (22:14)
[2017-10-13 05:00] VITALS: BP 123/73
[2017-10-13] MEDS: SODIUM CHLORIDE 0.9% 1,000 ML IV SCH (05:45)
[2017-10-13] MEDS: ALBUTEROL SULF 2.5 MG/0.5ML(0.5%) NEB SOLN NEB SCH ×3 (05:52→14:06)
[2017-10-13] MEDS: IPRATROPIUM BROM 0.5 MG/2.5ML INH SOL NEB SCH ×3 (05:52→14:05)
[2017-10-13 07:05] LABS: BUN/Creatinine Ratio 58.1; Calcium 8.7 mg/dL (8.5-10.1); Potassium 4.3 mmol/L (3.5-5.1)
[2017-10-13 08:00] VITALS: BP 114/75
[2017-10-13] MEDS: BOOST 8 ounces PO SCH (08:20)
[2017-10-13] MEDS: POTASSIUM CHL 20 Meq TABLET PO SCH (10:00)
[2017-10-13] MEDS: BUDESONIDE (INHALATION) 0.5 MG/2 ML NEB NEB SCH (10:04)
[2017-10-13] MEDS: ASPirin-EC 81 mg tab PO SCH (10:26)
[2017-10-13] MEDS: DOXYCYCLINE 100 MG TAB/CAP PO SCH (10:26)
[2017-10-13] MEDS: predniSONE 20 MG TAB PO SCH (10:26)
[2017-10-13 11:51] VITALS: BP 138/83
[2017-10-13 12:00] VITALS: BP 119/66
[2017-11-07] MEDS ORDERED: LEVO500T21 PO (11:26)
[2017-11-07] MEDS ORDERED: PANT40TA2 PO (11:26)
[2017-11-07] MEDS ORDERED: SACC250C PO (11:26)
== END 2017-10-13 16:42 | disposition home or self-care (01) | DRG 291 ==
LOC: EDBD 01:47 → ER 01:53 → TELE 01:54 → TELE-EAST 15:51
PROVIDERS: ADMIT Nurse Practitioner Family; ATTEND Internal Medicine Pulmonary Disease
PROC: 5A09357 Assistance with Respiratory Ventilation, Less than 24 Consecutive Hours, Continuous Positive Airway Pressure (ICD-10-PCS; principal; 2017-09-29)
PROC: 5A09357 Assistance with Respiratory Ventilation, Less than 24 Consecutive Hours, Continuous Positive Airway Pressure (ICD-10-PCS; 2017-10-04)
PROC: 5A09357 Assistance with Respiratory Ventilation, Less than 24 Consecutive Hours, Continuous Positive Airway Pressure (ICD-10-PCS; 2017-10-05)
DX: I11.0 Hypertensive heart disease with heart failure (principal); J96.21 Acute and chronic respiratory failure with hypoxia; E87.3 Alkalosis; J96.22 Acute and chronic respiratory failure with hypercapnia; J44.1 Chronic obstructive pulmonary disease with (acute) exacerbation; E87.1 Hypo-osmolality and hyponatremia; J84.10 Pulmonary fibrosis, unspecified; E87.6 Hypokalemia; I50.33 Acute on chronic diastolic (congestive) heart failure; D72.829 Elevated white blood cell count, unspecified; F41.9 Anxiety disorder, unspecified; F17.210 Nicotine dependence, cigarettes, uncomplicated; Z82.49 Family history of ischemic heart disease and other diseases of the circulatory system; Z87.59 Personal history of other complications of pregnancy, childbirth and the puerperium; Z83.3 Family history of diabetes mellitus; Z99.81 Dependence on supplemental oxygen; Z90.49 Acquired absence of other specified parts of digestive tract
CPT/HCPCS: 36415; 36600; 51702; 71045; 80048; 80053; 80061; 81001; 82550; 82805; 83036; 83735; 83880; 84484; 85025; 87081; 93005; 93306; 94640; 94660; 96374; 96375; 97110; 97163; 97530; J0153; J2405; J3480

== ENCOUNTER 2017-11-03 07:20 | Inpatient (IN) | payer BC ==
[~2017-11-03] VITALS: Ht 160 cm; Wt 79.7 kg
[~2017-11-03 07:20] MED LIST changes: +ALPR0.254 PO; -LEVO500T21 PO; -LISI10TA PO; -PRED-188 PO; +UMEC1AER IN
[2017-11-03] MEDS ORDERED: methylPREDNISolone SOD SUCC 125 MG/2 ML VL IV ONE (07:25)
[2017-11-03 07:35] VITALS: BP 146/98
[2017-11-03] MEDS ORDERED: SODIUM CHLORIDE 0.9% 1,000 ML IV ONE (08:20)
[2017-11-03] MEDS ORDERED: IPRATROPIUM BROM 0.5 MG/2.5ML INH SOL NEB ONE (08:30)
[2017-11-03] MEDS ORDERED: ALBUTEROL SULF 2.5 MG/0.5ML(0.5%) NEB SOLN NEB ONE (08:30)
[2017-11-03] MEDS ORDERED: MAGNESIUM SULFATE 1GM/100ML 100 ML IV ONE (08:30)
[2017-11-03 09:40] VITALS: BP 146/98
[2017-11-03 10:12] LABS: Basophils # (auto) 0 uL; Basophils % (auto) 0.4 % (0.0-2.0); Eosinophils # (auto) 0.1 uL; Hematocrit 34.3 % (36.0-46.0); Hemoglobin 11.5 g/dL (12.2-16.2); Lymphocytes # (auto) 3.3 uL; Mean Corpuscular Hemoglobin 31.5 pg (28.0-32.0); Mean Corpuscular Volume 93.8 fL (80.0-100.0); Monocytes # (auto) 1.1 uL; Monocytes % (auto) 14.3 % (0.0-12.0); Neutrophils # (auto) 3.3 uL; Neutrophils % (auto) 42.3 % (37.0-80.0); Nucleated Red Blood Cells % 0.1 %; Red Blood Cells 3.66 10^6/uL (4.0-5.20); White Blood Cell 7.7 10^3/uL (4.4-10.8)
[2017-11-03 10:13] LABS: Mean Corpuscular Hgb Conc. 33.6 g/dL (32.0-36.0); Platelet Count (auto) 599 10^3/uL (140-450); Red Cell Distribution Width 14.2 % (11.8-14.3)
[2017-11-03 10:26] LABS: INR 0.92 (0.9-1.15); Partial Thromboplastin Time 25.7 sec (22.64-33.71)
[2017-11-03 10:41] LABS: Alanine Aminotransferase 28 U/L (13-56); Albumin 2.5 g/dL (3.4-5.0); Alkaline Phosphatase 65 U/L (45-117); Anion Gap 8 (5-15); Aspartate Aminotransferase 17 U/L (15-37); BUN/Creatinine Ratio 21.1; Bilirubin, Total 0.2 mg/dL (0.2-1.0); Blood Urea Nitrogen 8 mg/dL (7-18); Calcium 8.6 mg/dL (8.5-10.1); Carbon Dioxide 34 mmol/L (21-32); Chloride 103 mmol/L (98-107); GFR African American 224 mL/min; GFR Non-African American 186 mL/min; Glucose 146 mg/dL (74-106); Sodium 145 mmol/L (136-145); Total Protein 6.1 g/dL (6.4-8.2)
[2017-11-03 10:49] LABS: Potassium 2.8 mmol/L (3.5-5.1)
[2017-11-03 11:14] LABS: Magnesium 1.8 mg/dL (1.6-2.6)
[2017-11-03 11:20] VITALS: BP 146/98
[2017-11-03] MEDS: POTASSIUM CHL 20MEQ/100ML 100 ML IV SCH ×2 (11:29→13:22)
[2017-11-03] MEDS ORDERED: ONDANSETRON HCL 4 MG/2 ML VIAL IV PRN (11:30)
[2017-11-03] MEDS ORDERED: MORPHINE SULFATE 4 MG/ML SYR/VIAL IV PRN (11:30)
[2017-11-03] MEDS ORDERED: HYDROcodone-ACET 5/325MG TAB PO PRN (11:30)
[2017-11-03] MEDS ORDERED: amLODIPine BESYLATE 5 MG TAB PO ONE (11:30)
[2017-11-03] MEDS ORDERED: POTASSIUM CHL 10% (20 MEQ/15ML) 15ml ORAL SOLN PO ONE (11:30)
[2017-11-03] MEDS: ENOXAPARIN SOD 40 MG/0.4 ML SYRINGE SC SCH (11:57)
[2017-11-03] MEDS: IPRATROPIUM BROM 0.5 MG/2.5ML INH SOL NEB SCH ×2 (13:30→18:00)
[2017-11-03] MEDS: ALBUTEROL SULF 2.5 MG/0.5ML(0.5%) NEB SOLN NEB SCH ×2 (13:30→18:00)
[2017-11-03] MEDS: BUDESONIDE (INHALATION) 0.5 MG/2 ML NEB NEB SCH ×2 (13:30→18:30)
[2017-11-03] MEDS ORDERED: FUROSEMIDE 20 MG/2 ML VIAL IV ONE (15:30)
[2017-11-03] MEDS ORDERED: POTASSIUM CHL 20 Meq TABLET PO ONE (15:30)
[2017-11-03] MEDS ORDERED: LEVOFLOXACIN 500MG 100 ML IV ONE (15:30)
[2017-11-03 19:00] VITALS: BP 154/93
[2017-11-03 19:21] VITALS: BP 154/93
[2017-11-03 22:00] VITALS: BP 161/93
[2017-11-03] MEDS: ATORVASTATIN 20 MG TAB PO SCH (22:30)
[2017-11-03] MEDS: methylPREDNISolone SOD SUCC 125 MG/2 ML VL IV SCH (22:30)
[2017-11-03] MEDS: ALPRAZolam 0.25 MG TAB PO SCH (22:31)
[2017-11-04] VITALS (7 sets, daily range): BP systolic 99–153; BP diastolic 52–83
[2017-11-04] MEDS: IPRATROPIUM BROM 0.5 MG/2.5ML INH SOL NEB SCH ×4 (00:35→19:15)
[2017-11-04] MEDS: ALBUTEROL SULF 2.5 MG/0.5ML(0.5%) NEB SOLN NEB SCH ×4 (00:35→19:15)
[2017-11-04] MEDS ORDERED: LISI-285 PO (04:45)
[2017-11-04 05:59] LABS: Basophils # (auto) 0 uL; Basophils % (auto) 0.1 % (0.0-2.0); Eosinophils # (auto) 0 uL; Hematocrit 30.7 % (36.0-46.0); Hemoglobin 10.4 g/dL (12.2-16.2); Lymphocytes # (auto) 0.5 uL; Lymphocytes % (auto) 15.1 % (10.0-50.0); Mean Corpuscular Hemoglobin 31.7 pg (28.0-32.0); Mean Corpuscular Volume 93.4 fL (80.0-100.0); Monocytes # (auto) 0.1 uL; Monocytes % (auto) 3.1 % (0.0-12.0); Neutrophils # (auto) 2.5 uL; Neutrophils % (auto) 81.7 % (37.0-80.0); Nucleated Red Blood Cells % 0.1 %; Platelet Count (auto) 406 10^3/uL (140-450); Red Blood Cells 3.29 10^6/uL (4.0-5.20); Red Cell Distribution Width 14.3 % (11.8-14.3); White Blood Cell 3.1 10^3/uL (4.4-10.8)
[2017-11-04 06:14] LABS: BUN/Creatinine Ratio 37.5; Calcium 8.8 mg/dL (8.5-10.1); Potassium 3.3 mmol/L (3.5-5.1)
[2017-11-04] MEDS: BUDESONIDE (INHALATION) 0.5 MG/2 ML NEB NEB SCH ×2 (07:41→19:15)
[2017-11-04] MEDS: LEVOFLOXACIN 500MG 100 ML IV SCH (09:38)
[2017-11-04] MEDS: methylPREDNISolone SOD SUCC 125 MG/2 ML VL IV SCH ×2 (09:38→21:31)
[2017-11-04] MEDS: ENOXAPARIN SOD 40 MG/0.4 ML SYRINGE SC SCH (09:39)
[2017-11-04] MEDS: amLODIPine BESYLATE 5 MG TAB PO SCH (09:41)
[2017-11-04] MEDS: ALPRAZolam 0.25 MG TAB PO SCH ×2 (09:41→21:31)
[2017-11-04 12:58] LABS: Urine Bacteria NONE SEEN /hpf (None Seen); Urine Blood Negative /uL (Negative); Urine Mucus FEW (None Seen); Urine Specific Gravity 1.019 (1.001-1.035); Urine WBC 2 /hpf (0 - 5)
[2017-11-04] MEDS ORDERED: POTASSIUM CHL 20 Meq TABLET PO ONE (15:45)
[2017-11-04] MEDS ORDERED: MAGNESIUM SULFATE 1GM/100ML 100 ML IV ONE (15:45)
[2017-11-04] MEDS ORDERED: VANCOMYCIN 1GM/250ML 250 ML IV ONE (15:45)
[2017-11-04] MEDS: ATORVASTATIN 20 MG TAB PO SCH (21:31)
[2017-11-05] MEDS: IPRATROPIUM BROM 0.5 MG/2.5ML INH SOL NEB SCH ×4 (00:22→19:11)
[2017-11-05] MEDS: ALBUTEROL SULF 2.5 MG/0.5ML(0.5%) NEB SOLN NEB SCH ×4 (00:22→19:11)
[2017-11-05 05:40] VITALS: BP 142/83
[2017-11-05] MEDS: BUDESONIDE (INHALATION) 0.5 MG/2 ML NEB NEB SCH ×2 (06:08→19:11)
[2017-11-05 06:32] LABS: Basophils # (auto) 0 uL; Basophils % (auto) 0.1 % (0.0-2.0); Eosinophils # (auto) 0 uL; Hematocrit 31.2 % (36.0-46.0); Hemoglobin 10.5 g/dL (12.2-16.2); Lymphocytes # (auto) 0.6 uL; Lymphocytes % (auto) 9.7 % (10.0-50.0); Mean Corpuscular Hemoglobin 31.6 pg (28.0-32.0); Mean Corpuscular Hgb Conc. 33.8 g/dL (32.0-36.0); Mean Corpuscular Volume 93.6 fL (80.0-100.0); Monocytes # (auto) 0.2 uL; Monocytes % (auto) 4.1 % (0.0-12.0); Neutrophils % (auto) 86.1 % (37.0-80.0); Nucleated Red Blood Cells % 0.1 %; Platelet Count (auto) 407 10^3/uL (140-450); Red Blood Cells 3.33 10^6/uL (4.0-5.20); Red Cell Distribution Width 14.4 % (11.8-14.3); White Blood Cell 5.8 10^3/uL (4.4-10.8)
[2017-11-05 06:58] LABS: Calcium 8.8 mg/dL (8.5-10.1); Magnesium 2.6 mg/dL (1.6-2.6); Potassium 4.1 mmol/L (3.5-5.1)
[2017-11-05 07:50] VITALS: BP 144/82
[2017-11-05 08:00] VITALS: BP 144/82
[2017-11-05] MEDS: LEVOFLOXACIN 500MG 100 ML IV SCH (09:31)
[2017-11-05] MEDS: ENOXAPARIN SOD 40 MG/0.4 ML SYRINGE SC SCH (09:32)
[2017-11-05] MEDS: methylPREDNISolone SOD SUCC 125 MG/2 ML VL IV SCH (09:32)
[2017-11-05] MEDS: amLODIPine BESYLATE 5 MG TAB PO SCH (09:33)
[2017-11-05] MEDS: ALPRAZolam 0.25 MG TAB PO SCH ×2 (09:33→21:54)
[2017-11-05 11:46] VITALS: BP 143/80
[2017-11-05] MEDS ORDERED: LISINOPRIL 10 MG TAB PO ONE (13:30)
[2017-11-05] MEDS ORDERED: PANTOPRAZOLE 40 MG TAB PO ONE (13:30)
[2017-11-05] MEDS: methylPREDNISolone SOD SUCC 40 MG/ML VL IV SCH ×2 (14:39→21:53)
[2017-11-05 16:53] VITALS: BP 148/78
[2017-11-05] MEDS: ATORVASTATIN 20 MG TAB PO SCH (21:54)
[2017-11-05 22:15] VITALS: BP 111/59
[2017-11-06] VITALS (7 sets, daily range): BP systolic 103–143; BP diastolic 57–81
[2017-11-06 06:16] LABS: Basophils # (auto) 0 uL; Basophils % (auto) 0.6 % (0.0-2.0); Eosinophils # (auto) 0 uL; Hematocrit 31.3 % (36.0-46.0); Hemoglobin 10.5 g/dL (12.2-16.2); Lymphocytes # (auto) 0.7 uL; Lymphocytes % (auto) 10.6 % (10.0-50.0); Mean Corpuscular Hemoglobin 31.5 pg (28.0-32.0); Mean Corpuscular Hgb Conc. 33.6 g/dL (32.0-36.0); Monocytes # (auto) 0.4 uL; Monocytes % (auto) 5.7 % (0.0-12.0); Neutrophils # (auto) 5.5 uL; Neutrophils % (auto) 83.1 % (37.0-80.0); Nucleated Red Blood Cells % 0.1 %; Platelet Count (auto) 408 10^3/uL (140-450); Red Blood Cells 3.33 10^6/uL (4.0-5.20); Red Cell Distribution Width 14.7 % (11.8-14.3); White Blood Cell 6.6 10^3/uL (4.4-10.8)
[2017-11-06 06:30] LABS: BUN/Creatinine Ratio 46.8; Calcium 8.6 mg/dL (8.5-10.1); Potassium 3.9 mmol/L (3.5-5.1)
[2017-11-06] MEDS: BUDESONIDE (INHALATION) 0.5 MG/2 ML NEB NEB SCH ×2 (06:36→19:00)
[2017-11-06] MEDS: IPRATROPIUM BROM 0.5 MG/2.5ML INH SOL NEB SCH ×4 (06:36→18:59)
[2017-11-06] MEDS: ALBUTEROL SULF 2.5 MG/0.5ML(0.5%) NEB SOLN NEB SCH ×4 (06:36→18:59)
[2017-11-06] MEDS: ALPRAZolam 0.25 MG TAB PO SCH ×2 (09:53→21:50)
[2017-11-06] MEDS: amLODIPine BESYLATE 5 MG TAB PO SCH (09:53)
[2017-11-06] MEDS: methylPREDNISolone SOD SUCC 40 MG/ML VL IV SCH ×2 (09:53→21:50)
[2017-11-06] MEDS: LEVOFLOXACIN 500MG 100 ML IV SCH (09:53)
[2017-11-06] MEDS: PANTOPRAZOLE 40 MG TAB PO SCH (09:54)
[2017-11-06] MEDS: LISINOPRIL 10 MG TAB PO SCH (09:54)
[2017-11-06] MEDS: ENOXAPARIN SOD 40 MG/0.4 ML SYRINGE SC SCH (09:54)
[2017-11-06] MEDS: ATORVASTATIN 20 MG TAB PO SCH (21:50)
[2017-11-07 05:00] VITALS: BP 131/73
[2017-11-07 07:25] VITALS: BP 133/84
[2017-11-07] MEDS: IPRATROPIUM BROM 0.5 MG/2.5ML INH SOL NEB SCH ×3 (07:31→13:25)
[2017-11-07] MEDS: ALBUTEROL SULF 2.5 MG/0.5ML(0.5%) NEB SOLN NEB SCH ×3 (07:31→13:25)
[2017-11-07] MEDS: BUDESONIDE (INHALATION) 0.5 MG/2 ML NEB NEB SCH (07:38)
[2017-11-07 08:00] VITALS: BP 133/84
[2017-11-07] MEDS: LEVOFLOXACIN 500MG 100 ML IV SCH (09:10)
[2017-11-07] MEDS: methylPREDNISolone SOD SUCC 40 MG/ML VL IV SCH (09:10)
[2017-11-07] MEDS: ALPRAZolam 0.25 MG TAB PO SCH (09:11)
[2017-11-07] MEDS: LISINOPRIL 10 MG TAB PO SCH (09:11)
[2017-11-07] MEDS: ENOXAPARIN SOD 40 MG/0.4 ML SYRINGE SC SCH (09:12)
[2017-11-07] MEDS: PANTOPRAZOLE 40 MG TAB PO SCH (09:12)
[2017-11-07] MEDS: amLODIPine BESYLATE 5 MG TAB PO SCH (09:12)
[2017-11-07] MEDS ORDERED: LEVO500T21 PO (11:26)
[2017-11-07] MEDS ORDERED: SACC250C PO (11:26)
[2017-11-07] MEDS ORDERED: PANT40TA2 PO (11:26)
[2017-11-07 12:27] VITALS: BP 133/84
[2017-11-07 13:00] VITALS: BP 140/76
== END 2017-11-07 14:48 | disposition home health service (06) | DRG 871 ==
LOC: ER 07:20 → OVERFLOW 07:21 → WEST WING 18:50
PROVIDERS: ADMIT Internal Medicine; ATTEND Internal Medicine
PROC: 5A09357 Assistance with Respiratory Ventilation, Less than 24 Consecutive Hours, Continuous Positive Airway Pressure (ICD-10-PCS; principal; 2017-11-04)
PROC: 5A09457 Assistance with Respiratory Ventilation, 24-96 Consecutive Hours, Continuous Positive Airway Pressure (ICD-10-PCS; 2017-11-05)
PROC: 5A09357 Assistance with Respiratory Ventilation, Less than 24 Consecutive Hours, Continuous Positive Airway Pressure (ICD-10-PCS; 2017-11-06)
PROC: 5A09357 Assistance with Respiratory Ventilation, Less than 24 Consecutive Hours, Continuous Positive Airway Pressure (ICD-10-PCS; 2017-11-07)
DX: A41.1 Sepsis due to other specified staphylococcus (principal); J96.22 Acute and chronic respiratory failure with hypercapnia; J96.21 Acute and chronic respiratory failure with hypoxia; J18.9 Pneumonia, unspecified organism; Z99.81 Dependence on supplemental oxygen; I11.9 Hypertensive heart disease without heart failure; E44.0 Moderate protein-calorie malnutrition; J44.0 Chronic obstructive pulmonary disease with (acute) lower respiratory infection; J44.1 Chronic obstructive pulmonary disease with (acute) exacerbation; D63.8 Anemia in other chronic diseases classified elsewhere; E78.5 Hyperlipidemia, unspecified; E87.6 Hypokalemia; F17.210 Nicotine dependence, cigarettes, uncomplicated; Z82.49 Family history of ischemic heart disease and other diseases of the circulatory system; Z83.3 Family history of diabetes mellitus; Z87.59 Personal history of other complications of pregnancy, childbirth and the puerperium; Z90.49 Acquired absence of other specified parts of digestive tract; Z98.51 Tubal ligation status; Z68.31 Body mass index [BMI] 31.0-31.9, adult
CPT/HCPCS: 36415; 36600; 71045; 80048; 80053; 81001; 82805; 83605; 83735; 83880; 84484; 85025; 85610; 85730; 87040; 87077; 87081; 87186; 93005; 94640; 94660; 96361; 96365; 96375; 97116; 97530; 99291; J1956; J3480

== ENCOUNTER 2018-03-10 07:47 | Inpatient (IN) | payer BC ==
[~2018-03-10] VITALS: Ht 170.2 cm; Wt 83.3 kg
[~2018-03-10 07:47] MED LIST changes: +LEVO500T21 PO; +LISI-285 PO; +PANT40TA2 PO; +SACC250C PO
[2018-03-10] MEDS ORDERED: SODIUM CHLORIDE 0.9% 1,000 ML IV ONE (07:54)
[2018-03-10 07:59] VITALS: BP 168/110
[2018-03-10] MEDS ORDERED: IPRATROPIUM BROM 0.5 MG/2.5ML INH SOL NEB ONE (08:00)
[2018-03-10] MEDS ORDERED: methylPREDNISolone SOD SUCC 125 MG/2 ML VL IV ONE (08:00)
[2018-03-10] MEDS ORDERED: ALBUTEROL SULF 2.5 MG/0.5ML(0.5%) NEB SOLN NEB ONE (08:00)
[2018-03-10 08:24] LABS: Basophils # (auto) 0.1 uL; Basophils % (auto) 1.3 % (0.0-2.0); Eosinophils # (auto) 0.3 uL; Eosinophils % (auto) 3.6 % (0.0-7.0); Hematocrit 41.7 % (36.0-46.0); Hemoglobin 13.5 g/dL (12.2-16.2); Lymphocytes # (auto) 3.1 uL; Lymphocytes % (auto) 39.9 % (10.0-50.0); Mean Corpuscular Hemoglobin 29.5 pg (28.0-32.0); Mean Corpuscular Hgb Conc. 32.4 g/dL (32.0-36.0); Mean Corpuscular Volume 91.2 fL (80.0-100.0); Monocytes # (auto) 0.6 uL; Neutrophils # (auto) 3.6 uL; Neutrophils % (auto) 47.2 % (37.0-80.0); Nucleated Red Blood Cells % 0.1 %; Platelet Count (auto) 308 10^3/uL (140-450); Red Blood Cells 4.57 10^6/uL (4.0-5.20); Red Cell Distribution Width 13.7 % (11.8-14.3); White Blood Cell 7.7 10^3/uL (4.4-10.8)
[2018-03-10] MEDS ORDERED: ALBUAER3 IN (08:26)
[2018-03-10 08:34] LABS: INR 0.85 (0.9-1.15); Lactic Acid w/Reflex 3.7 mmol/L (0.4-2.0); Partial Thromboplastin Time 24.5 sec (23.78-33.04); Prothrombin Time 9.2 sec (9.27-12.13)
[2018-03-10 08:35] LABS: Alanine Aminotransferase 37 U/L (13-56); Albumin 3.2 g/dL (3.4-5.0); Alkaline Phosphatase 72 U/L (45-117); Anion Gap 10 (5-15); Aspartate Aminotransferase 31 U/L (15-37); BUN/Creatinine Ratio 29.8; Bilirubin, Total 0.2 mg/dL (0.2-1.0); Blood Urea Nitrogen 25 mg/dL (7-18); Calcium 8.9 mg/dL (8.5-10.1); Carbon Dioxide 25 mmol/L (21-32); Chloride 107 mmol/L (98-107); GFR African American 90 mL/min; GFR Non-African American 74 mL/min; Glucose 199 mg/dL (74-106); Potassium 4.5 mmol/L (3.5-5.1); Sodium 142 mmol/L (136-145)
[2018-03-10 10:22] VITALS: BP 168/110
[2018-03-10] MEDS ORDERED: ACETAMINOPHEN 325 MG TAB PO PRN (10:45)
[2018-03-10] MEDS ORDERED: LISINOPRIL 10 MG TAB PO ONE (10:45)
[2018-03-10] MEDS ORDERED: DOCUSATE SOD 100 MG CAP PO PRN (10:45)
[2018-03-10] MEDS ORDERED: HYDROcodone-ACET 5/325MG TAB PO PRN (10:45)
[2018-03-10] MEDS ORDERED: DEXTROSE (50%) 50ML SYRG IV PRN (10:45)
[2018-03-10] MEDS ORDERED: AZITHROMYCIN 500MG/ 250ML 250 ML IV ONE (10:45)
[2018-03-10] MEDS ORDERED: HCTZ 25 MG TAB PO ONE (10:45)
[2018-03-10] MEDS ORDERED: cefTRIAXone 1GM/10ml IVPUSH 10 ML IV ONE (10:45)
[2018-03-10] MEDS ORDERED: NITROGLYCERIN 0.4 MG SL TAB SL PRN (10:45)
[2018-03-10] MEDS ORDERED: ONDANSETRON HCL 4 MG/2 ML VIAL IV PRN (10:45)
[2018-03-10] MEDS ORDERED: TEMAZEPAM 15 MG CAP PO PRN (10:45)
[2018-03-10] MEDS ORDERED: MORPHINE SULF INJ 2 MG/ML SYRINGE 1ML IV PRN (10:45)
[2018-03-10] MEDS: InsuLIN REG 1unit/0.01ml Soln (100units/ml) SC SCH ×3 (11:30→22:00)
[2018-03-10] MEDS: ACCU-CHEK COMFORT CURVE STRIP VI SCH ×3 (11:35→22:00)
[2018-03-10] MEDS: methylPREDNISolone SOD SUCC 40 MG/ML VL IV SCH ×2 (11:36→18:04)
[2018-03-10 12:15] VITALS: BP 122/75
[2018-03-10] MEDS ORDERED: cloNIDine HCL 0.1 MG TAB PO PRN (12:15)
[2018-03-10] MEDS ORDERED: IOHEXOL 300 MG/ML 75ml BOTTLE IJ ONE (12:57)
[2018-03-10 13:33] VITALS: BP 119/67
[2018-03-10] MEDS: SODIUM CHLOR 0.9% PF (SALINE LOCK) 10ML VIAL/SYR IV SCH ×2 (14:02→22:17)
[2018-03-10] MEDS: ALBUTEROL SULF 2.5 MG/0.5ML(0.5%) NEB SOLN NEB SCH ×4 (14:15→22:30)
[2018-03-10] MEDS: IPRATROPIUM BROM 0.5 MG/2.5ML INH SOL NEB SCH ×4 (14:15→22:30)
[2018-03-10 14:17] VITALS: BP 122/75
[2018-03-10] MEDS: ALPRAZolam 0.25 MG TAB PO PRN (21:07)
[2018-03-10 22:00] VITALS: BP 159/96
[2018-03-10] MEDS: FAMOTIDINE 20 MG TAB PO SCH (22:17)
[2018-03-11] VITALS (7 sets, daily range): BP systolic 111–134; BP diastolic 59–70
[2018-03-11] MEDS: methylPREDNISolone SOD SUCC 40 MG/ML VL IV SCH ×4 (00:12→17:32)
[2018-03-11] MEDS: IPRATROPIUM BROM 0.5 MG/2.5ML INH SOL NEB SCH ×5 (05:43→23:00)
[2018-03-11] MEDS: ALBUTEROL SULF 2.5 MG/0.5ML(0.5%) NEB SOLN NEB SCH ×5 (05:43→23:00)
[2018-03-11] MEDS: SODIUM CHLOR 0.9% PF (SALINE LOCK) 10ML VIAL/SYR IV SCH ×3 (05:47→21:40)
[2018-03-11] MEDS: ALPRAZolam 0.25 MG TAB PO PRN ×2 (06:05→21:41)
[2018-03-11] MEDS: InsuLIN REG 1unit/0.01ml Soln (100units/ml) SC SCH ×2 (06:07→11:30)
[2018-03-11] MEDS: ACCU-CHEK COMFORT CURVE STRIP VI SCH ×2 (06:07→11:30)
[2018-03-11 06:55] LABS: Basophils # (auto) 0 uL; Basophils % (auto) 0.1 % (0.0-2.0); Eosinophils # (auto) 0 uL; Hematocrit 38.6 % (36.0-46.0); Lymphocytes # (auto) 0.6 uL; Lymphocytes % (auto) 12.2 % (10.0-50.0); Mean Corpuscular Hemoglobin 30.6 pg (28.0-32.0); Mean Corpuscular Hgb Conc. 33.8 g/dL (32.0-36.0); Mean Corpuscular Volume 90.7 fL (80.0-100.0); Monocytes # (auto) 0.1 uL; Monocytes % (auto) 2.6 % (0.0-12.0); Neutrophils # (auto) 4.4 uL; Neutrophils % (auto) 85.1 % (37.0-80.0); Platelet Count (auto) 254 10^3/uL (140-450); Red Blood Cells 4.25 10^6/uL (4.0-5.20); Red Cell Distribution Width 13.5 % (11.8-14.3); White Blood Cell 5.2 10^3/uL (4.4-10.8)
[2018-03-11 07:39] LABS: Albumin 3.3 g/dL (3.4-5.0); BUN/Creatinine Ratio 27.1; Bilirubin, Total 0.2 mg/dL (0.2-1.0); Calcium 9.3 mg/dL (8.5-10.1); Potassium 4.2 mmol/L (3.5-5.1)
[2018-03-11] MEDS: LISINOPRIL 10 MG TAB PO SCH (10:48)
[2018-03-11] MEDS: MULTIPLE VITAMIN TAB PO SCH (10:48)
[2018-03-11] MEDS: FAMOTIDINE 20 MG TAB PO SCH ×2 (10:48→21:40)
[2018-03-11] MEDS: cefTRIAXone 1GM/10ml IVPUSH 10 ML IV SCH (10:49)
[2018-03-11] MEDS: HCTZ 25 MG TAB PO SCH (10:49)
[2018-03-11] MEDS: AZITHROMYCIN 500MG/ 250ML 250 ML IV SCH (10:49)
[2018-03-12] MEDS: ALBUTEROL SULF 2.5 MG/0.5ML(0.5%) NEB SOLN NEB SCH ×3 (02:00→10:20)
[2018-03-12] MEDS: IPRATROPIUM BROM 0.5 MG/2.5ML INH SOL NEB SCH ×3 (02:00→10:20)
[2018-03-12] MEDS: methylPREDNISolone SOD SUCC 40 MG/ML VL IV SCH ×3 (02:59→11:31)
[2018-03-12 05:00] VITALS: BP 124/74
[2018-03-12] MEDS: SODIUM CHLOR 0.9% PF (SALINE LOCK) 10ML VIAL/SYR IV SCH ×2 (06:56→13:46)
[2018-03-12 07:13] LABS: Basophils # (auto) 0 uL; Eosinophils # (auto) 0 uL; Hematocrit 36.5 % (36.0-46.0); Hemoglobin 12.5 g/dL (12.2-16.2); Lymphocytes # (auto) 0.7 uL; Lymphocytes % (auto) 8.7 % (10.0-50.0); Mean Corpuscular Hemoglobin 30.7 pg (28.0-32.0); Mean Corpuscular Hgb Conc. 34.1 g/dL (32.0-36.0); Mean Corpuscular Volume 90.1 fL (80.0-100.0); Monocytes # (auto) 0.3 uL; Monocytes % (auto) 3.4 % (0.0-12.0); Neutrophils # (auto) 6.7 uL; Neutrophils % (auto) 87.9 % (37.0-80.0); Platelet Count (auto) 225 10^3/uL (140-450); Red Blood Cells 4.05 10^6/uL (4.0-5.20); Red Cell Distribution Width 13.3 % (11.8-14.3); White Blood Cell 7.6 10^3/uL (4.4-10.8)
[2018-03-12 07:27] LABS: Potassium 4.1 mmol/L (3.5-5.1)
[2018-03-12 07:36] LABS: Albumin 3.1 g/dL (3.4-5.0); BUN/Creatinine Ratio 44.1; Calcium 8.8 mg/dL (8.5-10.1)
[2018-03-12 07:39] LABS: Bilirubin, Total 0.3 mg/dL (0.2-1.0); Total Protein 6.5 g/dL (6.4-8.2)
[2018-03-12 08:00] VITALS: BP 138/82
[2018-03-12 09:00] VITALS: BP 138/82
[2018-03-12] MEDS: MULTIPLE VITAMIN TAB PO SCH (09:28)
[2018-03-12] MEDS: LISINOPRIL 10 MG TAB PO SCH (09:28)
[2018-03-12] MEDS: cefTRIAXone 1GM/10ml IVPUSH 10 ML IV SCH (09:28)
[2018-03-12] MEDS: FAMOTIDINE 20 MG TAB PO SCH (09:28)
[2018-03-12] MEDS: HCTZ 25 MG TAB PO SCH (09:28)
[2018-03-12] MEDS: AZITHROMYCIN 500MG/ 250ML 250 ML IV SCH (09:28)
[2018-03-12 11:38] VITALS: BP 138/82
[2018-03-12 13:00] VITALS: BP 139/77
== END 2018-03-12 14:10 | disposition home or self-care (01) | DRG 871 ==
LOC: EDBD 07:47 → ER 07:47 → TELE 07:48 → TELE-CENTR 21:37
PROVIDERS: ADMIT Internal Medicine; ATTEND Family Medicine
PROC: 5A09357 Assistance with Respiratory Ventilation, Less than 24 Consecutive Hours, Continuous Positive Airway Pressure (ICD-10-PCS; principal; 2018-03-10)
DX: A41.9 Sepsis, unspecified organism (principal); J96.21 Acute and chronic respiratory failure with hypoxia; J96.22 Acute and chronic respiratory failure with hypercapnia; E44.0 Moderate protein-calorie malnutrition; J45.901 Unspecified asthma with (acute) exacerbation; J44.0 Chronic obstructive pulmonary disease with (acute) lower respiratory infection; J44.1 Chronic obstructive pulmonary disease with (acute) exacerbation; E11.21 Type 2 diabetes mellitus with diabetic nephropathy; E11.22 Type 2 diabetes mellitus with diabetic chronic kidney disease; E11.65 Type 2 diabetes mellitus with hyperglycemia; E78.00 Pure hypercholesterolemia, unspecified; E78.5 Hyperlipidemia, unspecified; I12.9 Hypertensive chronic kidney disease with stage 1 through stage 4 chronic kidney disease, or unspecified chronic kidney disease; J98.4 Other disorders of lung; J20.9 Acute bronchitis, unspecified; N18.2 Chronic kidney disease, stage 2 (mild); I70.0 Atherosclerosis of aorta; Z87.891 Personal history of nicotine dependence; Z99.81 Dependence on supplemental oxygen; Z90.49 Acquired absence of other specified parts of digestive tract; Z98.51 Tubal ligation status; Z68.28 Body mass index [BMI] 28.0-28.9, adult
CPT/HCPCS: 36415; 36600; 71045; 71260; 80053; 82805; 82962; 83036; 83605; 83880; 84443; 84484; 85025; 85379; 85610; 85730; 87040; 93005; 93970; 94640; 94660; 96361; 96365; 96375; 99291; J1815; Q9967

== ENCOUNTER 2022-11-06 19:30 | Emergency (ER) | payer BC, OTHER ==
[~2022-11-06] VITALS: Ht 160 cm; Wt 91.0 kg
[~2022-11-06 19:30] MED LIST changes: +ALBUAER3 IN; -LEVO500T21 PO; +LEVO500T31 PO
[2022-11-06] MEDS ORDERED: IBUPROFEN 600 MG TAB PO ONE (22:00)
[2022-11-06 22:26] VITALS: BP 144/92
== END 2022-11-06 22:32 | disposition home or self-care (01) ==
LOC: EDBD 19:30 → EDUNIT# 19:30 → ER 19:30
DX: S29.9XXA Unspecified injury of thorax, initial encounter (principal); J44.9 Chronic obstructive pulmonary disease, unspecified; I10 Essential (primary) hypertension; Z90.49 Acquired absence of other specified parts of digestive tract; Z98.51 Tubal ligation status; Z87.891 Personal history of nicotine dependence; V43.52XA Car driver injured in collision with other type car in traffic accident, initial encounter; Y93.89 Activity, other specified; Y92.488 Other paved roadways as the place of occurrence of the external cause; Y99.8 Other external cause status
CPT/HCPCS: 71045; 93005

== ENCOUNTER 2024-10-18 22:36 | Emergency (ER) | payer BC ==
[~2024-10-18] VITALS: Ht 170.2 cm; Wt 100.0 kg
[2024-10-18 22:36] VITALS: BP 0/0; PULSE 0; RESP 0; O2SAT 0
[2024-10-18] MEDS ORDERED: ATROPINE SULF 1 MG/10ml SYR IV ONE (22:37)
--- NOTE | 2024-10-18 23:10 | ED.PDOC ---
CPR-HPI HPI Comments 63y F who presents to the ED via EMS for chief complaint of cardiac arrest. Per EMS, pt was found by son on the bathroom floor and EMS was called to the scene. Pt son told EMS that pt has been sick for the past few day. EMS states pt was responsive and pt was able to recall her name and states " pt was slightly responsive but weak." EMS staff was able to get pt on EMS gurney and while en route to the ED, pt became unresponsive and lost pulses and CPR was initiated. Pt was brougt to the ED with autopulse initiated by EMS staff and pt unresponsive. TOD was called at 2254. Further history taken from patient's daughter. Patient has been ill for the past several days with nausea, vomiting and diarrhea. She had been bed-bound. Patient has a history of COPD. She is supplemental oxygen dependent. Chief Complaint: CPR Time Seen by MD: 23:09 Primary Care Provider: UNKNOWN Reviewed Notes: Rn Clinical Research Notes Allergies: Coded Allergies: NO KNOWN ALLERGIES (Unverified , 02/10/16) Home Meds Active Scripts Pantoprazole Sodium Sesquihydr (Protonix) 40 Mg Tab, 40 MG PO DAILY, #30 TAB Prov:PABLO BOBO MD 11/07/17 Yeast (S. Boulardii)(S. Cerevi (Florastor) 250 Mg Cap, 250 MG PO DAILY, #14 CAP Prov:PABLO BOBO MD 11/07/17 Levofloxacin (Levaquin) 500 Mg Tab, 500 MG PO DAILY, #10 TAB Prov:PABLO BOBO MD 11/07/17 Albuterol Sulfate (Ventolin) 2.5 Mg/0.5 Ml Nb, 2.5 MG NEB Q4HPRN PRN for SHORTN ESS OF BREATH for 30 Days Prov:SUSY SHIRLEY MD 02/13/16 Reported Medications Albuterol Sulfate (VENTOLIN MDI) 90 Mcg Ih, 90 MCG IN Q4HP PRN for SHORTNESS OF BREATH 03/10/18 Lisinopril & Hydrochlorothiazi (Lisinopril/Hydrochlorothi) 1 Tab Tab, 1 TAB PO DAILY, #30 TAB 5 Refills 11/04/17 Umeclidinium-Vilanterol (Anoro Ellipta 62.5-25 Mcg/INH) 1 Aer Aer, 1 AER IN, AER 09/29/17 Alprazolam (Alprazolam) 0.25 Mg Tab, 1 TAB PO BID, #60 TAB 09/29/17 Information Source: Emergency Med Personnel Mode of Arrival: EMS Brought in by: EMS Vital Signs Vital Signs Date Time Temp Pulse Resp B/P (MAP) Pulse Ox O2 Delivery O2 Flow Rate FiO2 10/18/24 22:36 97.3 0 0 0/0 (0) 0 Physical Exam General: Patient is unresponsive HEENT: Pupils unequal, fixed, dilated, nonreactive. There is no corneal reflex. Cardiac: No heart sounds auscultated, no pulses palpated Abdomen: Distended. Respiratory: No spontaneous respirations, mechanical breath sounds auscultated with bagging at bilateral apices. Skin: Face is cyanotic, skin is cool and mottled Neuro: GCS 3, patient is unresponsive to painful stimulus. 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 Was a procedure done?: No Differential Dx CPR Differential Diagnosis: Cardiopulmonary arrest, Cardiac Tamponade, Electrolyte disorder, Heart Block, Myocardial Infarction X-Ray, Labs, Meds, VS Vital Signs Date Time Temp Pulse Resp B/P (MAP) Pulse Ox O2 Delivery O2 Flow Rate FiO2 10/18/24 22:36 97.3 0 0 0/0 (0) 0 Time of 1ST Reevaluation: 22:54 Reevaluation 1ST: Patient Education/Counseling: Pt Unresponsive Family Education/Counseling: No Family Present Departure 1 Departure Time of Disposition: 22:54 Impression: Primary Impression: Cardiac arrest Disposition: 20 Condition: Other () Comments 63-year-old female presented to the emergency department via EMS in cardiac arrest. Per EMS patient lost pulses EN route to the hospital after which they initiated ACLS protocols and endotracheal intubation. On arrival to the emergency department cardiac compressions were continued by mechanical compression device in order to sustain blood flow. The patient was ventilated and oxygenated. The patient received appropriate ACLS measures and these were repeated as necessary throughout the resuscitation. CPR was performed under my direct supervision and guidance. See patient resuscitation status note for medications and times given. After discontinuation of resuscitation, I did not observe spontaneous breathing or appreciate heart sounds on auscultation. There was no palpable radial pulse. There was no cardiac activity on bedside ultrasound. The patient did not respond to nail bed stimuli. I examined the patient and there was no pupillary response to light. Patient was pronounced . TOD: [id number] Patient's daughter was notified of patient's passing. Critical Care Note Critical Care Time?: No Heart Score Heart Score: Heart Score Response (Comments) Value History N/A 0 EKG N/A 0 Age N/A 0 Risk Factors N/A 0 Troponin N/A 0 Total 0 Stability Stability form required: No I personally scribed for YAMILA GALEANA MD ([email or web address]) on 10/18/24 at 23:10. Electronically submitted by Fiorella Barone ([email or web address]). YAMILA GALEANA MD Oct 18, 2024 23:10
--- NOTE | 2024-10-19 04:36 | RESUS ---
CODE BLUE ASSESSSMENT History of Events History of Events: 63y F who presents to the ED via EMS for chief complaint of cardiac arrest. Per EMS, pt was found by son on the bathroom floor and EMS was called to the scene. Pt son told EMS that pt has been sick for the past few day. EMS states pt was responsive and pt was able to recall her name and states " pt was slightly responsive but weak." EMS staff was able to get pt on EMS gurney and while en route to the ED, pt became unresponsive and lost pulses and CPR was initiated. Pt was brougt to the ED with autopulse initiated by EMS staff and pt unresponsive. Initial Information Date: Oct 18, 2024 Time: : Location of Arrest: In Field Arrest Witnessed: Yes CPR started initial time: : CPR started by whom: EMS Last seen well: inmidiatly before arrest Pre-Hospital Care: ACLS Type of arrest: Cardiac, Respiratory, Adult, Witnessed Spontaneous Respirations: No Pulse Present: Yes Monitoring: ECG, Pulse Oximetry, Apnea, Telemetry Airway Ventilation Breathing at Onset: Apneic O2 Sat by Pulse Oximetry: 0 Oxygen Delivery Method: Ambu-Bag Time of first Assisted Ventila: 21:22 Artificial Ventilation: Bag/Endo tube Intubation Time: 21:22 Intubation Size: 7.0 cuffed Intubated by: EMS Intubated orally: Yes Intubated Nasaly: No CO2 indicator used: Yes Confirmation: Auscultation, Exhaled CO2 Suctioning (Oral/Tracheal): No Circulation Circulation : Time: 22:37 Pulse Rate (adult): 0 Blood Pressure Systolic: 0 Blood Pressure Diastolic: 0 Temperature (Fahrenheit): 97.3 Defibrillation Defbrillation : Time Defibrillator Applied: 22:40 EKG Rhythm: V-Fibrillation Compressions: Device Compressions Hold/Resume: 2240 Time Defibrillator Shocked Pt.: 22:40 Defib. Joules: 120 Pulse Present: No EKG Rhythm: Asystole Procedure - Intraosseous Site of Intraosseous: Tibia claudio-medial Intraosseous inserted by: RIGHT STARTED BY EMS, LEFT TIBIA CLAUDIO-MEDIAL STARTED IN ED AT 2243 BY HUGH WHEAT Medications & Response Medications and Responses #1: Medication Time: 22:37 ADULT Medications Given ADULT: Epinephrine 1 mg, Sodium Bacarbinate 50 meq, D50 (amp) Route of Administration: IO Medication Comment: BS 65 Heart Rate: 0 EKG Rhythm: Asystole Blood Pressure Systolic: 0 Blood Pressure Diastolic: 0 Respiratory Rate: 0 O2 Sat by Pulse Oximetry: 0 IV Line Rate: 1000 EKG Rhythm: V-Fibrillation Comment PULSE CHECK 2240 NO PULSE V FIB ON MONITOR Medications and Responses #2: Medication Time: 22:40 ADULT Medications Given ADULT: Epinephrine 1 mg, Amiodarone 150 mg Route of Administration: IO Heart Rate: 0 EKG Rhythm: Asystole Blood Pressure Systolic: 0 Blood Pressure Diastolic: 0 Respiratory Rate: 0 O2 Sat by Pulse Oximetry: 0 IV Line Rate: 1000 EKG Rhythm: Asystole Comment NO PULSE AT 2243 Medications and Responses #3: Medication Time: 22:43 ADULT Medications Given ADULT: Epinephrine 1 mg, Atropine 1 mg Route of Administration: IO Heart Rate: 0 EKG Rhythm: PEA Blood Pressure Systolic: 0 Blood Pressure Diastolic: 0 Respiratory Rate: 0 O2 Sat by Pulse Oximetry: 0 IV Line Rate: 1000 EKG Rhythm: PEA Comment NO PULSE AT 2246 Medications and Responses #4: Medication Time: 22:46 ADULT Medications Given ADULT: Epinephrine 1 mg Route of Administration: IO Heart Rate: 0 EKG Rhythm: PEA Blood Pressure Systolic: 0 Blood Pressure Diastolic: 0 Respiratory Rate: 0 O2 Sat by Pulse Oximetry: 0 IV Line Rate: 1000 EKG Rhythm: PEA Comment NO PULSE AT 2249, NO CARDIAC ACTIVITY BY ULTRASOUND Medications and Responses #5: Medication Time: 22:51 ADULT Medications Given ADULT: Epinephrine 1 mg Route of Administration: IO Heart Rate: 0 EKG Rhythm: Asystole Blood Pressure Systolic: 0 Blood Pressure Diastolic: 0 Respiratory Rate: 0 O2 Sat by Pulse Oximetry: 0 IV Line Rate: 1000 EKG Rhythm: Asystole Comment NO PULSE AT 2254, NO CARDIAC ACTIVITY BY U/S Pacing Pacer Pads Applied and Pacing: Yes Nurses Notes [place] Coma Scale Eye Opening: None (1) [place] Coma Scale Verbal: None (1) [place] Coma Scale Motor: None (1) [place] Total: 3 Pupil Reaction: Non Reactive Bedside Blood Glucose: 65 EKG Rhythm: Asystole Time Code Ended Time Code Ended: 22:54 Post Arrest Status: Outcome of code: Unsuccessful Patient pronounced by: DR GALEANA Code Team Present: THERESE MENSAH RN HS, JARON WHALE TRAINER, HUGH WHEAT PRIMARY, MER RN, NAWAF ERT, ANALISA RT, PARTH RT, KAY RT. Post Resuscitation Neurologica Pupil Size: 5 Comment: THERESE CARRILLO Oct 19, 2024 04:36
== END 2024-10-18 22:54 ==
LOC: ER 22:36 → EDBD 22:36 → EDUNIT# 22:36 → ER 22:54
DX: I46.9 Cardiac arrest, cause unspecified (principal); I10 Essential (primary) hypertension; J44.9 Chronic obstructive pulmonary disease, unspecified; Z79.899 Other long term (current) drug therapy; Z90.49 Acquired absence of other specified parts of digestive tract; Z98.51 Tubal ligation status; Z99.81 Dependence on supplemental oxygen
CPT/HCPCS: 92950; 99285; J0171; J0282; J7042